=== PATIENT | male | born 1940 | race Caucasian/White ===

== ENCOUNTER → 2017-05-01 | Outpatient (CLI) | payer MEDICARE, BC ==
[~2017-05-01] MED LIST: APIX5TAB PO; ASPI81CH CHEW; ASPI81TA82 PO; ATEN1TAB73 PO; ATEN25TA PO; ATOR40TA PO; ATOR40TA16 PO; DULC100C PO; FISH1000 PO; GLIP5TAB8 PO; HYDR-3516 PO; ISOS30TA3 PO; LISI-360 PO; LISI10TA3 PO; MAGN200T PO; METH750T2 PO; NITR.4 SL; NITR1SUB3 SL; NORC5TAB PO; TAMS0.4C67 PO; ULTR50TA PO
[2017-05-01 10:15] LABS: AUTOMATED NEUTROPHIL # 3.5 TH/MM3 (1.8-7.7); BASOPHIL # 0.1 TH/MM3 (0-0.2); BASOPHIL % 1.2 % (0.0-2.0); EOSINOPHIL # 0.2 TH/MM3 (0-0.4); EOSINOPHIL % 3.8 % (0.0-4.0); HEMATOCRIT 41.4 % (39.0-51.0); HEMO FLAGS DIFF FINAL; LYMPH % 31.1 % (9.0-44.0); MEAN CELL VOLUME 91.8 FL (80.0-100.0); MEAN CORPUSCULAR HEMOGLOBIN 30.9 PG (27.0-34.0); MEAN CORPUSCULAR HGB CONC 33.7 % (32.0-36.0); MONO % 8.5 % (0.0-8.0); NEUT % 55.4 % (16.0-70.0); PLATELET COUNT 152 TH/MM3 (150-450); RED BLOOD COUNT 4.51 MIL/MM3 (4.50-5.90); WHITE BLOOD COUNT 6.3 TH/MM3 (4.0-11.0)
[2017-05-01 10:48] LABS: BICARBONATE 26.4 MEQ/L (21.0-32.0); POTASSIUM 4.4 MEQ/L (3.5-5.1)
[2017-05-01 11:04] LABS: BLOOD, URINE NEG (NEG); COMMENT (UR) CULT NOT INDICATED; CULTURE IF INDICATED CULT NOT INDICATED; GLUCOSE,URINE NEG (NEG); KETONE, URINE NEG (NEG); NITRITE,URINE NEG (NEG); URINE COLOR YELLOW (YELLW/STRAW)
--- NOTE | 2017-05-01 12:55 | RADRPT ---
EXAM DATE/TIME: 05/01/2017 11:18 [facility] COMPARISON: CHEST PA & LAT, September 04, 2015, 11:41. INDICATIONS : Evaluate for pneumonia, pneumothorax or communicable disease. Pre-op for shoulder surgery on 05/14/17 . MEDICAL HISTORY : Hyperparathyroidism. Diabetes mellitus type II. SURGICAL HISTORY : Coronary artery stent. ENCOUNTER: Initial ACUITY: 1 day PAIN SCORE: 0/10 LOCATION: Bilateral chest FINDINGS: The heart is stable. The pulmonary vascular pattern is normal. The lungs are clear. Degenerative c hanges are noted throughout the thoracic spine. Significant arthritic changes are noted involving th e shoulders bilaterally. There is also chronic bilateral rotator cuff pathology. CONCLUSION: 1. No acute cardiopulmonary disease. 2. Marked degenerative changes and chronic rotator cuff pathology involving the shoulders bilaterall y. 3. Degenerative changes throughout the thoracic spine. Carlos Coles MD on May 01, 2017 at 12:40 Board Certified Radiologist. This report was verified electronically.
--- NOTE | 2017-05-02 11:59 | EKG ---
Date Performed: 05/01/2017 Time Performed: 10:44:22 PTAGE: 76 years EKG: SINUS BRADYCARDIA BORDERLINE ECG NO PREVIOUS TRACING DOCTOR: Brooks Amezcua Interpretating Date/Time 05/02/2017 11:58:09
== END ==
LOC: CPRE 09:46
PROVIDERS: ATTEND Orthopaedic Surgery
DX: Z01.810 Encounter for preprocedural cardiovascular examination (principal); Z01.811 Encounter for preprocedural respiratory examination; Z01.812 Encounter for preprocedural laboratory examination; Z79.01 Long term (current) use of anticoagulants; M19.011 Primary osteoarthritis, right shoulder; R94.31 Abnormal electrocardiogram [ECG] [EKG]
CPT/HCPCS: 36415; 71020; 80048; 81001; 85025; 85610; 93005

== ENCOUNTER 2017-05-14 05:19 | Inpatient (IN) | payer MEDICARE, BC ==
--- NOTE | 2017-05-12 11:52 | MH ---
cc: ALEXANDERKARLA DATE OF ADMISSION: 05/14/2017 ADMITTING DIAGNOSIS 1. End-stage osteoarthritis of the right glenohumeral joint. 2. Complete rotator cuff tear, right shoulder. 3. Pain, right shoulder. HISTORY OF PRESENT ILLNESS The patient is a 76-year-old white male who has experienced pain of his right shoulder of at least six years duration. He had noted the gradual onset of discomfort unrelated to injury. 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 Within the past several years he did undergo orthopedic evaluation and apparently was diagnosed as having an arthritic condition of his right shoulder and his left knee for which recommendation was made to proceed with operative intervention. He did subsequently undergo a left total knee arthroplasty and experienced difficulty with regards to his rehabilitation thereafter for which he was taking tramadol for pain management. During this interval of time he continued to have ongoing pain about his right shoulder for which he subsequently was seen by the undersigned physician in April of 2016. At that time x-ray studies revealed severe degenerative changes of the glenohumeral joint with hypertrophic bony reaction and subtotal obliteration of the joint space with elevation of the humeral head in relationship to the glenoid and pronounced compromise of the subacromial space. There was atrophy of the acromion as well. Findings and treatment options were reviewed with the patient at this time. The pros and cons of continuing with conservative management versus operative intervention that would involve a reverse shoulder arthroplasty were outlined in detail. Emphasis was made regarding the fact that the decision to proceed with surgery would be left entirely to the patient's discretion. The patient was not quite ready to commit to any additional treatment at that time and thus elected to continue with conservative management. He was followed on an outpatient basis thereafter during which time he remained symptomatic with pain about the shoulder area. He subsequently underwent a CT scan evaluation, the results of which identified end-stage glenohumeral joint arthrosis with what appeared to be a chronic massive rotator cuff tear associated with diffuse fatty atrophy of the supraspinatus, subscapularis and infraspinatus muscles. There was severe acromioclavicular joint arthrosis. The patient continued to have pain about the shoulder area and again the treatment options were reviewed. The patient was not quite ready to commit to operative treatment once again, and thus elected to continue with conservative modalities. He was taking tramadol for pain management. He returned to the office more recently indicating that he was obviously incapacitated with regards to all activities of daily living having undergone a course of physical therapy and was trying to conform to continue exercise activities under his own supervision. Unfortunately, he was having considerable difficulty in this regard and felt that he had arrived at a point in time where he was ready to proceed with treatment as previously discussed. In compliance with his wishes he has currently been scheduled for admission in order that right reverse shoulder arthroplasty be accomplished. PAST MEDICAL HISTORY His past medical history, hospitalizations and surgeries have included: 1. Left total knee arthroplasty. 2. Tonsillectomy. 3. Colonoscopy. 4. Cardiac catheterization. 5. Medical management for diverticulitis. 6. Cardiac evaluation for atrial fibrillation. The patient's medical illnesses include: 1. Atrial fibrillation. 2. Diabetes. MEDICATIONS His current medications: 1. Aspirin 81 mg tablet daily. 2. Atenolol 25 mg twice daily. 3. Atorvastatin 40 mg daily. 4. Eliquis 5 mg twice daily. 5. Glipizide 5 mg twice daily. 6. Isosorbide 30 mg daily. 7. Lisinopril 10 mg twice daily. 8. Nitroglycerin 0.4 mg p.r.n. 9. Magnesium, one tablet daily. 10. Fish oil 1200 mg twice daily. 11. Stool softener 100 mg daily. ALLERGIES The patient denies any known drug allergies. REVIEW OF SYSTEMS He does wear glasses. Denies headache, seizure or syncope. No sinus congestion or epistaxis. Diminished auditory acuity. No tinnitus. No bleeding gums or dysphagia. He has dental implants. Denies cough, shortness of breath, upper respiratory infection, pneumonia or tuberculosis. No angina. He is medically managed for atrial fibrillation. He is status post cardiac catheterization. Appetite is good. Bowel movements are regular. No hepatitis, gallbladder disease, ulcers or hemorrhoids. No urinary tract infection. No kidney stones. No prostate disease. No history of fractures. No psychiatric illness. His remaining review of systems is unremarkable and noncontributory. FAMILY HISTORY He has been for six years, this being a second marriage. His is 64 years of age and described as being in good health. He has two sons and two daughters by a previous marriage, both indicated to be in good health. Family history is otherwise positive for diabetes and heart disease. SOCIAL HISTORY The patient completed a high school education. 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 He admits to at least 50 years of use of tobacco alternating between cigars and cigarettes, ethanol consumption on rare occasion. PHYSICAL EXAMINATION Height 5 feet 9 inches, weight 230 pounds. GENERAL: An alert, oriented and responsive 76-year-old white male who sits quietly upon the examination table with mild distress as related to pain involving his right shoulder. HEAD, EYES, EARS, NOSE, AND THROAT: Pupils are equally round and reactive to light. Trace corneal arcus. Extraocular movements full. External nares clear. External auditory canals clear. Semi-edentulous with dental implants in place. Mucous membranes pink and moist. Pharynx clear. NECK: Supple. Active range of motion with no significant pain. Carotid pulse palpable bilaterally. Trachea midline. Thyroid without enlargement. LUNGS: Clear to auscultation and percussion. BACK: No CVA tenderness. No discomfort throughout the dorsolumbar spine. HEART: Regular irregular rhythm without murmur or gallop. ABDOMEN: Soft, nontender. Bowel sounds are present. RECTAL: Per primary care physician. EXTREMITIES: Right Shoulder: There is mild tenderness generalized about the anterior and superior aspect of the shoulder joint. Restricted mobility of the shoulder in all ranges assessed with pain at the extremes of motion. Forward flexion 45 degrees, extension 30 degrees. Internal rotation to the lateral waist level. External rotation 15-20 degrees. Patient unable to position right hand onto left shoulder. With passive manipulation pain is elicited in the 45-60 degree range of abduction maneuvering with crepitation elicited. Drop arm test positive. Mild weakness of internal and external rotation. Networking Technician strength intact. Sensory intact. NEUROLOGIC: Cranial nerves II-XII grossly intact. IMPRESSION 1. End-stage osteoarthritis, right glenohumeral joint. 2. Complete rotator cuff tear, right shoulder. 3. Pain, right shoulder. PLAN Right reverse shoulder arthroplasty. The nature of the planned surgical procedure, the potential complications and risks associated, the expectations of surgery and the consent form were thoroughly reviewed with the patient in the presence of his prior to admission to the hospital. Wai has indicated his full understanding regarding all of the above and given consent to proceed with treatment as outlined. Medical evaluation and clearance for surgery will be completed by his primary care physician, Dr. Anguiano. Karla Sandra MD NBS/BT /11:21 AM /11:34 AM
[~2017-05-14] VITALS: Ht 175.3 cm; Wt 104.0 kg
[~2017-05-14 05:19] MED LIST changes: -ASPI81TA82 PO; -ATEN1TAB73 PO; -ATOR40TA PO; -DULC100C PO; -HYDR-3516 PO; -LISI-360 PO; -MAGN200T PO; -METH750T2 PO; -NITR.4 SL; -NORC5TAB PO; -TAMS0.4C67 PO; -ULTR50TA PO
[2017-05-14] MEDS ORDERED: ceFAZolin 2 GM PREMIX 50 ML IV SCH (05:45)
[2017-05-14] MEDS ORDERED: INSULIN HUMAN REGULAR 1,000 UNITS/10 ML VIAL SQ PRN (05:45)
[2017-05-14] MEDS ORDERED: METOPROLOL TARTRATE 25 MG TAB PO PRN (05:45)
[2017-05-14] MEDS ORDERED: POVIDONE IODINE 7.5% SCRUB 118 ML BOTTLE TOPICAL SCH (05:45)
[2017-05-14] MEDS ORDERED: SODIUM CHLORID 0.9% 500 ML IV PRN (05:45)
[2017-05-14] MEDS ORDERED: CHLORHEXIDINE GLUCONATE 2 % 1 PACK (2 CLOTHS) TOPICAL PRN (05:45)
[2017-05-14] MEDS ORDERED: POVIDONE IODINE 5% (ANTISEPSIS KIT) 4 APPLICATIONS EACH NARE PRN (05:45)
[2017-05-14] MEDS ORDERED: LACTATED RINGER'S 1000 ML IV PRN (05:45)
[2017-05-14] MEDS ORDERED: ceFAZolin INJ 1,000 MG VIAL ONE (06:04)
[2017-05-14] MEDS ORDERED: GLIP5TAB8 PO (06:11)
[2017-05-14] MEDS ORDERED: MIDAZOLAM HCL 2 MG/2 ML VIAL ONE (06:44)
[2017-05-14] MEDS ORDERED: ACETAMINOPHEN 1000 MG/100 ML 100 ML IV ONE (06:44)
[2017-05-14] MEDS ORDERED: FAMOTIDINE 20 MG/2 ML VIAL ONE (06:45)
[2017-05-14] MEDS ORDERED: TRANEXAMIC ACID 1 GM PRIOR TO PROCEDURE IV SCH ×2 (07:00)
[2017-05-14] MEDS ORDERED: TRANEXAMIC ACID 1 GM POST-OP IV SCH ×2 (10:00)
[2017-05-14] MEDS ORDERED: ceFAZolin INJ 1,000 MG VIAL IV ONE ×2 (10:20→12:00)
[2017-05-14] MEDS ORDERED: DO NOT ADM ANY ANTICOAGULANT DRUGS PRN (10:54)
[2017-05-14] MEDS ORDERED: Post-op Orders (for Pharmacy) MISC XX ONE (11:00)
[2017-05-14] MEDS ORDERED: ONDANSETRON HCL 4 MG/2 ML VIAL IVP PRN (11:00)
[2017-05-14] MEDS ORDERED: SODIUM CHLORIDE 0.9% FLUSH 5 ML FLUSH IVF PRN (11:00)
[2017-05-14] MEDS ORDERED: TRANEXAMIC ACID INJ 1,000 MG in SODIUM CHLORIDE 0.9% INJ 100 ML IV SCH (11:00)
[2017-05-14] MEDS ORDERED: BISACODYL 10 MG SUPP RECTAL PRN (11:00)
[2017-05-14] MEDS ORDERED: ZOLPIDEM TARTRATE 5 MG TAB PO PRN (11:00)
[2017-05-14] MEDS ORDERED: ACETAMINOPHEN/HYDROcodone 325 MG/5 MG TAB PO PRN (11:00)
[2017-05-14] MEDS ORDERED: MISCELLANEOUS PHARMACY INFORMATION XX ONE (11:00)
[2017-05-14] MEDS ORDERED: ACETAMINOPHEN 325 MG TAB PO PRN (11:00)
[2017-05-14] MEDS ORDERED: NALOXONE HCL 0.4 MG/ML AMP IV PRN (11:00)
[2017-05-14] MEDS ORDERED: DEXT 5%-NACL 0.45% 1000 ML INJ 1,000 ML ONE (11:27)
[2017-05-14] MEDS: DEXT 5%-NACL 0.45% 1000 ML INJ 1,000 ML IV SCH ×2 (11:30→21:01)
--- NOTE | 2017-05-14 11:38 | RADRPT ---
EXAM DATE/TIME: 05/14/2017 11:13 [facility] COMPARISON: CHEST PA & LAT, May 01, 2017, 11:18. INDICATIONS : Post-op right shoulder replacement. MEDICAL HISTORY : Hyperparathyroidism. Diabetes mellitus type II. SURGICAL HISTORY : Coronary artery stent. ENCOUNTER: Initial ACUITY: 1 day PAIN SCORE: Non-responsive. LOCATION: Right shoulder. FINDINGS: The patient is post right shoulder arthroplasty. Orthopedic hardware appears in excellent position. T he visualized portion of lung apex is clear. There degenerative changes in the right a.c. joint. CONCLUSION: 1. Uncomplicated right shoulder arthroplasty. Addi Ventura MD on May 14, 2017 at 11:33 Board Certified Radiologist. This report was verified electronically.
[2017-05-14] MEDS ORDERED: BUPIVACAINE HCL PF 0.5% 30 ML VIAL NERV BLOCK ONE (11:39)
[2017-05-14] MEDS: MORPHINE SULFATE 30 MG/30 ML PCA IV SCH (11:40)
[2017-05-14] MEDS ORDERED: *ENALAPRILAT 1.25 MG/ML VIAL PERIprocedural Use ONLY ONE ×2 (11:41→12:15)
[2017-05-14] MEDS ORDERED: LIDOCAINE HCL 1% PF 5 ML AMPULE OTHER ONE (12:00)
[2017-05-14] MEDS ORDERED: GLYCOPYRROLATE 1 MG/5 ML SYRINGE IV PUSH ONE (12:00)
[2017-05-14] MEDS ORDERED: ONDANSETRON HCL 4 MG/2 ML VIAL IV PUSH ONE (12:00)
[2017-05-14] MEDS ORDERED: PROPOFOL 200 MG/20 ML AMP IV ONE (12:00)
[2017-05-14] MEDS ORDERED: NEOSTIGMINE 3 MG/3 ML SYR IV ONE (12:00)
[2017-05-14] MEDS ORDERED: ePHEDrine/NS 25 MG/5 ML SYR IV ONE (12:00)
[2017-05-14] MEDS ORDERED: ROCURONIUM INJ 50 MG/5 ML SYRINGE IV PUSH ONE (12:00)
--- NOTE | 2017-05-14 13:27 | MP ---
cc: KARLA SANDRA DATE OF SURGERY 05/14/2017 PREOPERATIVE DIAGNOSIS End-stage osteoarthritis of the right glenohumeral joint, complete rotator cuff tear right shoulder, pain right shoulder. POSTOPERATIVE DIAGNOSIS End-stage osteoarthritis of the right glenohumeral joint, complete rotator cuff tear right shoulder, pain right shoulder. PROCEDURE Right reverse shoulder arthroplasty. SURGEON Karla Sandra MD ANESTHESIA General endotracheal INDICATIONS A 76-year-old white male with pain of the right shoulder of at least six years duration who had noted the gradual onset of discomfort unrelated to any current injury. 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 Within the past several years, he did undergo orthopedic evaluation and at that time was apparently diagnosed as having an arthritic condition of his right shoulder as well as his left knee for which recommendation was made for operative intervention. He did subsequently undergo a left total knee arthroplasty experiencing difficulty with regards to his rehabilitation for which he was taking tramadol for pain management. During this interval of time, he continued to have ongoing pain about his right shoulder for which he was later seen by the undersigned physician in April of this past year. At that time, his x-ray studies revealed severe degenerative changes of the glenohumeral joint with hypertrophic bony reaction and subtotal obliteration of the joint space with elevation of the humeral head in relationship to the glenoid and pronounced compromise of the subacromial space. There was atrophy of the acromion as well. Findings and treatment options were reviewed with the patient at that time. The pros and cons of continuing with conservative management versus operative intervention that would involve a reverse shoulder arthroplasty were outlined in detail. Emphasis was made regarding the fact that the decision to proceed with surgery would be left entirely to the patient's discretion. At that time, the patient was not quite ready to commit to any form of operative treatment and elected to continue with conservative management. He was followed on an outpatient basis during which time he remained symptomatic with pain about the shoulder area. He later underwent a CT scan evaluation the results of which identified end stage glenohumeral joint arthrosis with what appeared to be a chronic massive rotator cuff tear associated with diffuse fatty atrophy of the supraspinatus, subscapularis and infraspinatus muscles. There was severe acromioclavicular joint arthrosis. The patient continued to have pain about the shoulder area and again treatment options were reviewed. The patient considered his options while continuing with conservative management and taking tramadol for pain management. He returned to the office more recently indicating that he was obviously incapacitated with regards to all activities of daily living having undergone a previous course of physical therapy while trying to conform to exercise activities under his own supervision. Unfortunately, he was having considerable difficulty in this regard and felt that he had arrived at a point in time where he was ready to proceed with treatment as previously discussed. In compliance with his wishes, he was scheduled for admission at this time in order that reverse shoulder arthroplasty be accomplished. FORMAT Following induction of satisfactory general anesthesia by endotracheal intubation as completed per the Department of Anesthesia, the patient was positioned upon the operating table in a modified beach-chair configuration. The right shoulder and upper extremity proper were isolated with a U-drape thereafter being prepped with Betadine solution and draped into a sterile field in the routine manner. Prior to initiation of the actual procedure, the standard time-out protocol was completed. All parameters were appropriately addressed and confirmed by operating personnel. A standard anterior approach to the shoulder was initiated through a sharp skin incision overlying the deltopectoral interval extending from the inferior margin of the clavicle to the axillary crease. The incision was developed through underlying subcutaneous tissue with hemostasis maintained by electrocautery. By deepening dissection, the deltopectoral interval was identified and the cephalic vein exposed distally and thereafter in a distal to proximal orientation, the deltopectoral interval was developed with the cephalic vein being retracted laterally with the deltoid musculature. Considerable adhesions were encountered throughout the subacromial bursa that required extensive debridement. There was also a very prominent segment of hypertrophic bone along the lateral margin of the acromion which was sharply excised. With the shoulder maintained in a slightly externally rotated orientation, a limited release of the pectoralis insertion was accomplished. The circumflex humeral vessels were clamped and coagulated. There was no evidence of a biceps tendon. The subscapularis tendon was markedly attenuated as it was divided along the anatomic neck of the humeral head and tagged medially with #1 Tycron suture. Additional hypertrophic bone was encountered within the confines of the joint space which was excised as it was exposed and the humeral head was gradually delivered into the wound exposing the humeral head in its entirety. Severe degenerative changes with associated deformity of the humeral head was readily apparent. An entry point was placed superiorly about the humeral head adjacent to the bicipital groove and entering into the humeral canal. Sequential rasping was thereafter accomplished from 7-13 mm. With the 13-mm rasp in place, the external guide was positioned in approximately 30 degrees of retroversion and secured into place and thereafter the humeral head was resected. Broaching was thereafter accomplished from 7 through 13 mm with a calcar gisella being utilized at the 13 mm stage. Additional debridement of the hypertrophic bone along the greater tuberosity was accomplished. It should be noted that there was no evidence of residual rotator cuff involving both supraspinatus and infraspinatus tendons. With the 13 mm trial humeral broach in place, a covering cap was placed and attention was redirected to the glenoid. Retractors were placed superiorly, anteriorly and posteriorly inferiorly where after the glenoid labrum was excised as was remnants of the superior and middle inferior glenohumeral ligaments. Obvious contracture was noted about the joint space which was freed as it was encountered. The axillary nerve was identified by palpation. With the glenoid adequately exposed in a 360 degrees orientation, hash flaherty were placed from 12-6 o'clock position and the 9-3 o'clock position allowing orientation of the central portion of the glenoid. A guide pin was thereafter placed at this entry point and utilizing the glenoid 10 degrees inferior tilt guide, the guide pin was positioned. Thereafter, the step-down central peg hole reamer was passed creating a central opening. Limited debridement along the inferior margin of the glenoid was accomplished and thereafter a 25 mm glenosphere mini baseplate was firmly seated. Drill holes were placed centrally facilitating positioning of a 35 mm central screw and two 25 mm locking screws were placed superiorly, inferiorly a 15 mm screw anteriorly. With the baseplate firmly secured into place, a 36 mm glenosphere with maximum inferior offset was secured onto the baseplate. Attention was redirected to the proximal humerus with the 13 mm trial humeral broach in place. Trial reductions were completed utilizing a 44 mm humeral tray with both 36-mm humeral bearings at both standard and +3 sizing trialed. The +3 sizing was determined to be the more favorable fit with some obvious tightness and limitations of external rotation beyond 30 degrees. The remaining mobility of the shoulder joint demonstrated stability throughout. An open dislocation was completed. The trial humeral components were removed. The wound was copiously irrigated with pulsating antibiotic solution and thereafter a 13 mm mini humeral stem was firmly seated to which a 44-mm humeral tray with 44 x 36 mm +3 humeral bearing insert attached. Open reduction completed and repeat range of motion again noted stability as previously described. Final irrigation was accomplished with hemostasis maintained. The subscapularis tendon was repaired with previously inserted #1 Tycron sutures. The deltopectoral interval was reapproximated with a running 0 Vicryl suture. The remaining portion of the wound was closed in layers in the routine manner with skin margins being reapproximated with a running subcuticular 3-0 Vicryl suture over which Steri-Strips were applied. Xeroform gauze and a bulky dry sterile dressing were placed. The extremity was supported in an arm sling anesthesia was discontinued. The patient thus transferred to a hospital bed and returned to recovery room in satisfactory condition having tolerated his operative procedure well. Estimated blood loss was approximately 100 cc. All implants were of the [employer] chimney construction supervisor. MD DEBBIE Gray/ARTHUR /10:40 AM /1:11 PM
--- NOTE | 2017-05-14 13:55 | PD.CONS ---
HPI Service [facility] Consult Requested By Primary Care Physician Felipe Anguiano MD Diagnoses: History of Present Illness Mr. Evans is a 76-year-old male. He is here for right total shoulder. I'm seeing him postop. He is doing well postop without complaints of pain, nausea, or dizziness. Nursing reports he did have some bradycardia during surgery. At baseline he is on atenolol. Past medical history of coronary artery disease does not complain of any chest pain at this time and has not had chest pain recently. No new complaints when seen today. Review of Systems Constitutional: DENIES: Fever, Chills, Change in appetite Endocrine: DENIES: Heat/cold intolerance Eyes: DENIES: Blurred vision, Diplopia, Eye inflammation, Eye pain Ears, nose, mouth, throat: DENIES: Tinnitus, Hearing loss, Vertigo Respiratory: DENIES: Cough, Wheezing, Sputum production, Shortness of breath Cardiovascular: DENIES: Chest pain, Palpitations, Syncope Gastrointestinal: DENIES: Abdominal pain, Black stools, Bloody stools Musculoskeletal: COMPLAINS OF: Joint pain, DENIES: Muscle aches, Stiffness Integumentary: DENIES: Abnormal pigmentation, Nail changes Hematologic/lymphatic: DENIES: Bruising, Lymphadenopathy Immunologic/allergic: DENIES: Eczema, Urticaria Neurologic: DENIES: Abnormal gait, Headache, Localized weakness Psychiatric: DENIES: Anxiety, Confusion, Hallucinations Past Family Social History Allergies: Coded Allergies: No Known Allergies (Verified , 05/14/17) Past Medical History Osteoarthritis Hypertension Hyperlipidemia Coronary artery disease Past Surgical History History of coronary artery stent 12 years ago Reported Medications Reported Meds & Active Scripts Active Reported Glipizide 5 Mg Tab 5 Mg PO DAILY Take 30 minutes before a meal Fish Oil ([place]-3 Fatty Acids) 340 Mg-1,000 Mg Cap 1,200 Mg PO BID Nitroglycerin SL (Nitroglycerin) 0.4 Mg Subl 0.4 Mg SL DIRECTED PRN ONE TABLET UNDER THE TONGUE NEEDED FOR CHEST PAIN, MAY REPEAT EVERY FIVE MINUTES FOR A TOTAL OF 3 DOSES OR CALL 911 IF NO RELIEF Lisinopril 10 Mg Tab 10 Mg PO BID Isosorbide Mononitrate ER (Isosorbide Mononitrate) 30 Mg Randy 30 Mg PO DAILY Atorvastatin (Atorvastatin Calcium) 40 Mg Tab 40 Mg PO HS Atenolol 25 Mg Tab 25 Mg PO DAILY Aspirin 81 Mg Chew 81 Mg CHEW DAILY Eliquis (Apixaban) 5 Mg Tab 5 Mg PO BID Active Ordered Medications Administered Medications Medications (Trade) Dose Ordered Sig/Leticia Route PRN Reason Start Time Stop Time Status Last Admin Dose Admin Lactated Ringer's 1,000 ml @ 30 mls/hr Q24H PRN IV SEE LABEL COMMENTS 05/14/17 05:45 05/17/17 05:44 05/14/17 06:15 Povidone Iodine (Betadine 5% Antisepsis Kit) 1 applic [employer] PRN EACH NARE SEE LABEL COMMENTS 05/14/17 05:45 05/17/17 05:44 05/14/17 06:15 Chlorhexidine Gluconate (Chlorhexidine 2% Cloth) 3 pack [employer] PRN TOPICAL SEE LABEL COMMENTS 05/14/17 05:45 05/17/17 05:44 05/14/17 05:20 Cefazolin Sodium/ Dextrose 50 ml @ 100 mls/hr [employer] IV 05/14/17 05:45 05/17/17 05:44 05/14/17 06:25 Dextrose/Sodium Chloride 1,000 ml @ 125 mls/hr Q8H IV 05/14/17 11:00 05/14/17 11:30 Morphine Sulfate (Morphine 1 Mg/ ml [employer]) 30 mg UNSCH IV 05/14/17 11:00 05/14/17 11:40 Family History No medical history in father Mother had diabetes mellitus type 2 Social History No alcohol abuse No illicit drug abuse Occasional cigar use Physical Exam Vital Signs Vital Signs Date Time Temp Pulse Resp B/P (MAP) Pulse Ox O2 Delivery O2 Flow Rate FiO2 05/14/17 12:30 97.6 55 16 169/70 (103) 95 Nasal Cannula 2 05/14/17 12:15 54 15 180/72 (108) 95 Nasal Cannula 2 05/14/17 12:00 52 15 176/77 (110) 94 Nasal Cannula 2 05/14/17 11:45 15 05/14/17 11:45 53 15 178/73 (108) 94 Nasal Cannula 2 05/14/17 11:40 51 15 190/75 (113) 100 Nasal Cannula 3 05/14/17 11:40 15 05/14/17 11:30 50 15 181/72 (108) 99 Nasal Cannula 3 05/14/17 11:15 51 15 162/70 (100) 98 Nasal Cannula 3 05/14/17 11:00 52 15 147/63 (91) 97 Nasal Cannula 3 05/14/17 10:50 97.4 59 18 134/61 (85) 100 Nasal Cannula 4 05/14/17 06:00 98.0 47 20 116/58 (77) 96 Physical Exam GENERAL: NAD, A&Ox3 HEAD: Normocephalic. NECK: Supple, trachea midline. No lymphadenopathy. EYES: No scleral icterus. No injection or drainage. CARDIOVASCULAR: Regular rate and rhythm without murmurs, gallops, or rubs. RESPIRATORY: Breath sounds equal bilaterally. No accessory muscle use. GASTROINTESTINAL: Abdomen soft, non-tender, nondistended. MUSCULOSKELETAL: No cyanosis, or edema. Right shoulder bandaged SKIN: Warm and dry. NEURO: No focal neurological deficitis. Assessment and Plan Problem List: (1) Hypertension ICD Code: I10 - Essential (primary) hypertension Status: Chronic (2) Hyperlipidemia ICD Code: E78.5 - Hyperlipidemia, unspecified Status: Chronic (3) CAD (coronary artery disease) ICD Code: I25.10 - Atherosclerotic heart disease of [place] coronary artery without angina pectoris Status: Chronic Assessment and Plan Assessment and plan 76-year-old male admitted secondary to total right shoulder surgery Status post total right shoulder surgery Osteoarthritis Follow hemoglobin Orthopedics following Continue as needed pain treatments Physical therapy Hypertension Follow blood pressures Continue baseline treatment, atenolol and lisinopril Hyperlipidemia Continue baseline treatment, statin Follow as an outpatient History of A. fib Coronary artery disease Follow on telemetry overnight Resume Imdur and nitroglycerin PRN Resume Eliquis in a.m. DM2 Follow blood sugars Insulin Sliding Scale Diabetic Diet DVT prophylaxis Eliquis to resume in a.m. Addi Heredia MD May 14, 2017 13:55
[2017-05-14] MEDS ORDERED: NITROGLYCERIN 0.4 MG SL 25 TABS/BTL SL PRN (14:00)
[2017-05-14] MEDS ORDERED: DEXTROSE 50% IN WATER 50 ML VIAL(D50) IV PUSH PRN (14:30)
[2017-05-14] MEDS ORDERED: GLUCAGON 1 MG/ML VIAL OTHER PRN (14:30)
[2017-05-14 15:00] VITALS: BP 111/58; PULSE 63; RESP 16; TEMP 97.8; O2SAT 98
[2017-05-14] MEDS: PCA - TOTAL MG MORPHINE DELIVERED PER SHIFT SCH ×2 (16:00→22:00)
[2017-05-14] MEDS: INSULIN ASPART SUPPLEMENTAL SCALE SQ SCH ×2 (17:34→21:00)
[2017-05-14 19:00] VITALS: BP 117/54; PULSE 67; RESP 16; TEMP 98.8; O2SAT 96
[2017-05-14 20:35] VITALS: O2SAT 98
[2017-05-14] MEDS: SODIUM CHLORIDE 0.9% FLUSH 5 ML FLUSH IVF SCH (21:00)
[2017-05-14] MEDS: APIXABAN 5 MG TABLET PO SCH (21:00)
[2017-05-14] MEDS: ATORVASTATIN 40 MG TAB PO SCH (21:00)
[2017-05-14 23:00] VITALS: PULSE 79
[2017-05-15] VITALS (9 sets, daily range): BP systolic 102–149; BP diastolic 61–84; PULSE 66–109; RESP 16–18; TEMP 96.8–100.3; O2SAT 95–98
[2017-05-15] MEDS: ACETAMINOPHEN/HYDROcodone 325 MG/5 MG TAB PO PRN ×5 (03:36→20:20)
[2017-05-15] MEDS: DEXT 5%-NACL 0.45% 1000 ML INJ 1,000 ML IV SCH ×3 (03:45→19:00)
[2017-05-15] MEDS: PCA - TOTAL MG MORPHINE DELIVERED PER SHIFT SCH ×3 (05:36→22:00)
[2017-05-15] MEDS: MORPHINE SULFATE 30 MG/30 ML PCA IV SCH (06:05)
[2017-05-15] MEDS ORDERED: HYDR-3516 PO (06:33)
--- NOTE | 2017-05-15 06:36 | HHI.FF ---
Face to Face Verification Diagnosis: (1) DJD of right shoulder Occupational Therapy Right UE Weight Bearing: WB as tolerated Right UE Range of Motion: Active ROM Additional Instructions Limit External Rotation to < 30 degrees for initial six weeks post-op Nursing Dressing Changes: Daily dressing change I have seen patient Wai Eavns on 05/15/17. My clinical findings support the need for the requested home health care services because: Limited ability to care for self High risk of falls I certify that my clinical findings support that this patient is homebound because: Post-op weakness Unsteady gait/balance Unsafe to leave home unassisted Arun Sandra MD May 15, 2017 06:36
[2017-05-15 07:07] LABS: BASOPHIL % 0.5 % (0.0-2.0); EOSINOPHIL # 0.1 TH/MM3 (0-0.4); EOSINOPHIL % 0.9 % (0.0-4.0); HEMATOCRIT 36.3 % (39.0-51.0); HEMO FLAGS DIFF FINAL; LYMPH % 16.4 % (9.0-44.0); LYMPHOCYTE # 1.4 TH/MM3 (1.0-4.8); MEAN CELL VOLUME 92.3 FL (80.0-100.0); MEAN CORPUSCULAR HEMOGLOBIN 31.1 PG (27.0-34.0); MEAN CORPUSCULAR HGB CONC 33.7 % (32.0-36.0); MONO % 9.6 % (0.0-8.0); NEUT % 72.6 % (16.0-70.0); PLATELET COUNT 122 TH/MM3 (150-450); RED BLOOD COUNT 3.93 MIL/MM3 (4.50-5.90); RED CELL DISTRIBUTION WIDTH 13.6 % (11.6-17.2); WHITE BLOOD COUNT 8.3 TH/MM3 (4.0-11.0)
[2017-05-15 07:26] LABS: ALT (GPT) 19 U/L (12-78); ANION GAP 6 MEQ/L (5-15); AST (GOT) 25 U/L (15-37); BICARBONATE 26.2 MEQ/L (21.0-32.0); BLOOD UREA NITROGEN 13 MG/DL (7-18); CHLORIDE 105 MEQ/L (98-107); GLOMERULAR FILTRATION RATE 81 ML/MIN (>89); SODIUM (NA) 137 MEQ/L (136-145)
[2017-05-15 07:27] LABS: ALKALINE PHOSPHATASE 29 U/L (45-117); TOTAL BILIRUBIN ADULT 0.7 MG/DL (0.2-1.0)
[2017-05-15] MEDS: INSULIN ASPART SUPPLEMENTAL SCALE SQ SCH ×4 (08:00→21:28)
[2017-05-15] MEDS: SODIUM CHLORIDE 0.9% FLUSH 5 ML FLUSH IVF SCH ×2 (09:00→20:16)
[2017-05-15] MEDS ORDERED: APIXABAN 5 MG TABLET PO SCH (09:00)
[2017-05-15] MEDS: ATENOLOL 25 MG TAB PO SCH (09:13)
[2017-05-15] MEDS: APIXABAN 5 MG TABLET PO SCH ×2 (09:13→20:17)
[2017-05-15] MEDS: ISOSORBIDE MONONITRATE 30 MG TAB PO SCH (09:13)
[2017-05-15] MEDS: LISINOPRIL 10 MG TAB PO SCH ×2 (09:13→20:19)
[2017-05-15] MEDS ORDERED: ZOLPIDEM TARTRATE 5 MG TAB PO PRN (17:00)
--- NOTE | 2017-05-15 17:09 | HHI.PR ---
Subjective Remarks Transient episode of A. fib RVR overnight. Patient is normally in sinus rhythm , but has a past history of A. fib. Etiology likely related to surgery and postop changes. He spontaneously returned to sinus rhythm. He has remained in sinus rhythm since. Objective Vital Signs Date Time Temp Pulse Resp B/P (MAP) Pulse Ox O2 Delivery O2 Flow Rate FiO2 05/15/17 16:23 96 21 05/15/17 08:00 98.0 66 18 149/72 (97) 96 05/15/17 06:15 17 05/15/17 06:05 18 05/15/17 05:36 18 05/15/17 04:00 99.6 66 17 146/71 (96) 95 05/15/17 00:00 100.3 75 16 146/70 (95) 96 05/14/17 23:00 79 05/14/17 22:00 18 05/14/17 20:35 98 21 05/14/17 19:00 98.8 67 16 117/54 (75) 96 I/O 05/14/17 05/14/17 05/14/17 05/15/17 05/15/17 05/15/17 07:00 15:00 23:00 07:00 15:00 23:00 Intake Total 50 ml 1450 ml 1084 ml 1665 ml Output Total 100 ml 800 ml 750 ml Balance 50 ml 1350 ml 284 ml 915 ml Intake Oral 480 ml 480 ml IV Total 50 ml 250 ml 604 ml 1185 ml Other 1200 ml Output Urine Total 800 ml 750 ml Estimated Blood Loss 100 ml # Voids 0 # Bowel Movements 0 0 Result Diagram: 05/15/17 0603 05/15/17 0603 Objective Remarks GENERAL: NAD, A&Ox3 HEAD: Normocephalic. NECK: Supple, trachea midline. No lymphadenopathy. EYES: No scleral icterus. No injection or drainage. CARDIOVASCULAR: Regular rate and rhythm without murmurs, gallops, or rubs. RESPIRATORY: Breath sounds equal bilaterally. No accessory muscle use. GASTROINTESTINAL: Abdomen soft, non-tender, nondistended. MUSCULOSKELETAL: No cyanosis, or edema. SKIN: Warm and dry. NEURO: No focal neurological deficitis. A/P Problem List: (1) DJD of right shoulder ICD Code: M19.011 - Primary osteoarthritis, right shoulder (2) Hypertension ICD Code: I10 - Essential (primary) hypertension Status: Chronic (3) Hyperlipidemia ICD Code: E78.5 - Hyperlipidemia, unspecified Status: Chronic (4) GERD (gastroesophageal reflux disease) ICD Code: K21.9 - Gastro-esophageal reflux disease without esophagitis Status: Acute (5) CAD (coronary artery disease) ICD Code: I25.10 - Atherosclerotic heart disease of [place] coronary artery without angina pectoris Status: Chronic Assessment and Plan Assessment and plan 76-year-old male admitted secondary to total right shoulder surgery Status post total right shoulder surgery Osteoarthritis Follow hemoglobin Orthopedics following Continue as needed pain treatments Physical therapy Hypertension Follow blood pressures Continue baseline treatment, atenolol and lisinopril Hyperlipidemia Continue baseline treatment, statin Follow as an outpatient History of A. fib Transient atrial fibrillation (this hospital stay) Coronary artery disease Continue to Follow on telemetry Resume Imdur and nitroglycerin PRN Continue Eliquis No change to present treatment at this point If A. fib recurs will consider upgrading patient's treatment and consulting cardiology DM2 Follow blood sugars Insulin Sliding Scale Diabetic Diet DVT prophylaxis Eliquis Discharge planning Plan for discharge to home with outpatient physical therapy, tomorrow if no recurrence of A. fib overnight Addi Heredia MD May 15, 2017 17:09
[2017-05-15] MEDS ORDERED: MAGNESIUM HYDROXIDE SUSP 30 ML CUP PO PRN (17:15)
[2017-05-15] MEDS: DOCUSATE SODIUM 100 MG CAP PO SCH (20:17)
[2017-05-15] MEDS: ATORVASTATIN 40 MG TAB PO SCH (20:17)
[2017-05-16] VITALS: BP 118/69; PULSE 67; RESP 17; TEMP 98.3; O2SAT 96
[2017-05-16] MEDS: ACETAMINOPHEN/HYDROcodone 325 MG/5 MG TAB PO PRN ×3 (00:04→09:36)
[2017-05-16] MEDS: DEXT 5%-NACL 0.45% 1000 ML INJ 1,000 ML IV SCH (03:00)
[2017-05-16 04:00] VITALS: BP 137/69; PULSE 76; RESP 17; TEMP 97.9; O2SAT 95
[2017-05-16] MEDS: PCA - TOTAL MG MORPHINE DELIVERED PER SHIFT SCH (06:00)
[2017-05-16 08:00] VITALS: BP 118/56; PULSE 83; RESP 18; TEMP 98.9; O2SAT 92
[2017-05-16] MEDS: SODIUM CHLORIDE 0.9% FLUSH 5 ML FLUSH IVF SCH (09:00)
[2017-05-16 09:05] VITALS: O2SAT 95
[2017-05-16] MEDS: APIXABAN 5 MG TABLET PO SCH (09:33)
[2017-05-16] MEDS: DOCUSATE SODIUM 100 MG CAP PO SCH (09:33)
[2017-05-16] MEDS: ISOSORBIDE MONONITRATE 30 MG TAB PO SCH (09:33)
[2017-05-16] MEDS: ATENOLOL 25 MG TAB PO SCH (09:34)
[2017-05-16] MEDS: LISINOPRIL 10 MG TAB PO SCH (09:34)
[2017-05-16] MEDS: INSULIN ASPART SUPPLEMENTAL SCALE SQ SCH (09:43)
--- NOTE | 2017-05-16 13:36 | HHI.PR ---
Subjective Remarks No recurrence of A. fib or A. fib RVR. No need to change patient's baseline treatments. Patient is stable for discharge to home with outpatient PT. Objective Vital Signs Date Time Temp Pulse Resp B/P (MAP) Pulse Ox O2 Delivery O2 Flow Rate FiO2 05/16/17 09:05 95 21 05/16/17 08:00 98.9 83 18 118/56 (76) 92 05/16/17 04:00 97.9 76 17 137/69 (91) 95 05/16/17 00:00 98.3 67 17 118/69 (85) 96 05/15/17 23:00 66 05/15/17 20:30 89 05/15/17 19:00 99.3 99 18 102/61 (75) 95 05/15/17 16:23 96 21 05/15/17 16:00 96.8 92 18 119/84 (96) 98 I/O 05/15/17 05/15/17 05/15/17 05/16/17 05/16/17 05/16/17 07:00 15:00 23:00 07:00 15:00 23:00 Intake Total 1665 ml 600 ml 480 ml 480 ml Output Total 750 ml Balance 915 ml 600 ml 480 ml 480 ml Intake Oral 480 ml 600 ml 480 ml 480 ml IV Total 1185 ml Output Urine Total 750 ml # Voids 4 3 3 # Bowel Movements 0 0 1 0 Result Diagram: 05/15/17 0603 05/15/17 0603 Objective Remarks GENERAL: NAD, A&Ox3 HEAD: Normocephalic. NECK: Supple, trachea midline. No lymphadenopathy. EYES: No scleral icterus. No injection or drainage. CARDIOVASCULAR: Regular rate and rhythm without murmurs, gallops, or rubs. RESPIRATORY: Breath sounds equal bilaterally. No accessory muscle use. GASTROINTESTINAL: Abdomen soft, non-tender, nondistended. MUSCULOSKELETAL: No cyanosis, or edema. SKIN: Warm and dry. NEURO: No focal neurological deficitis. A/P Problem List: (1) DJD of right shoulder ICD Code: M19.011 - Primary osteoarthritis, right shoulder (2) Hypertension ICD Code: I10 - Essential (primary) hypertension Status: Chronic (3) Hyperlipidemia ICD Code: E78.5 - Hyperlipidemia, unspecified Status: Chronic (4) GERD (gastroesophageal reflux disease) ICD Code: K21.9 - Gastro-esophageal reflux disease without esophagitis Status: Acute (5) CAD (coronary artery disease) ICD Code: I25.10 - Atherosclerotic heart disease of [place] coronary artery without angina pectoris Status: Chronic Assessment and Plan Assessment and plan 76-year-old male admitted secondary to total right shoulder surgery. Medically clear for discharge to home today. Status post total right shoulder surgery Osteoarthritis Follow with orthopedics as an outpatient Hypertension Follow blood pressures Continue baseline treatment, atenolol and lisinopril Hyperlipidemia Continue baseline treatment, statin Follow as an outpatient History of A. fib Transient atrial fibrillation (this hospital stay) Coronary artery disease No recurrence of A. fib Continue Imdur and nitroglycerin PRN Continue Eliquis No change to present treatment at this point DM2 Slight elevations should taper through time Follow blood sugars Resume baseline by mouth treatments Diabetic Diet DVT prophylaxis Eliquis Discharge planning Medically clear for discharge home today Addi Heredia MD May 16, 2017 13:36
--- NOTE | 2017-05-16 14:37 | MD ---
cc: KARLA MUNOZ WAFIK F. M.D. ADMISSION DATE: 05/14/2017 DISCHARGE DATE: 05/16/2017 ADMITTING DIAGNOSIS 1. End-stage osteoarthritis of the right glenohumeral joint. 2. Complete rotator cuff tear, right shoulder. 3. Pain, right shoulder. DISCHARGE DIAGNOSIS 1. End-stage osteoarthritis of the right glenohumeral joint. 2. Complete rotator cuff tear, right shoulder. 3. Pain, right shoulder. HISTORY This is a 76-year-old white male with pain in the right shoulder of at least six years duration. He had noted the gradual onset of discomfort unrelated to injury. 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 During the past several years he had undergone orthopedic evaluation and was diagnosed as having arthritic condition involving both his right shoulder and his left knee for which recommendation was made to proceed with operative intervention. He did subsequently undergo a left total knee arthroplasty experiencing some degree of difficulty with regards to his rehabilitation thereafter for which he was taking tramadol for pain management. During this interval of time he continued to note ongoing pain about his right shoulder for which he subsequently was seen by the undersigned physician in April 2016. At that time his x-ray studies revealed severe degenerative changes of the glenohumeral joint with hypertrophic bony reaction and subtotal obliteration of the joint space with elevation of the humeral head in relationship to the glenoid and pronounced compromise of the subacromial space. Atrophy of the acromion was noted. Findings and treatment options were reviewed with the patient at that time. The pros and cons of continuing with conservative management versus operative intervention that would involve a reverse shoulder arthroplasty were outlined in detail. Emphasis was made regarding the fact that the decision to proceed with surgery would be left entirely to the patient's discretion. At that time the patient was not quite ready to commit any additional treatment and elected to continue with conservative management. He was followed on an outpatient basis during which time he remained symptomatic with pain about the shoulder area. He subsequently underwent a CT scan evaluation the results of which identified end-stage glenohumeral joint arthrosis with what appeared to be a chronic massive rotator cuff tear associated with diffuse fatty atrophy of the supraspinatus and subscapularis and infraspinatus muscles. There was severe acromioclavicular joint arthrosis. The patient continued to experience pain about the shoulder area for which treatment options were again reviewed. The patient considered his options in that regard and has continued to take tramadol for pain management. He returned to the office more recently indicating that he was obviously incapacitated with regards to all activities of daily living having completed a course of physical therapy and trying to conform to exercise activities under his own supervision. Because of his ongoing symptoms and the associated limitations he was ready to consider surgery as previously discussed and in compliance with his wishes he was scheduled for admission at this time in order that reverse shoulder arthroplasty be accomplished. His physical examination at the time of admission revealed mild tenderness generalized about the anterior and superior aspect of the right shoulder. There was restricted mobility of the shoulder in all ranges assessed with pain associated. Forward flexion was limited to 45 degrees, extension 30 degrees, internal rotation to the lateral waist level, external rotation 15-20 degrees. The patient was unable to position his right hand onto his left shoulder. With passive manipulation pain was elicited in the 45-60 degrees range of abduction maneuvering with crepitation elicited. Drop arm test positive. Mild weakness of internal and external rotation. Cranberry Sorter strength intact. Sensory intact. HOSPITAL COURSE Prior to admission to the hospital the patient had undergone medical evaluation and clearance for surgery as completed by his primary care physician, Dr. Anguiano. He was taken to the operating room on 14 May 2017, and on that date underwent a right reverse shoulder arthroplasty completed in an uncomplicated manner. The patient was noted to have tolerated his operative procedure well and his postoperative course stable thereafter. Hemoglobin/hematocrit assessment postoperatively was 12.2 and 36.3 respectively. The patient was mobilized with the assistance of physical therapy intervention. [employer] In[employer] was consulted to assist in discharge planning. The patient indicated his desire to be discharged home and continue his rehabilitation on an outpatient basis. Plans were finalized in this regard and pending medical clearance he was scheduled for discharge on the second postoperative day at which time he was noted to be in a stable condition. He was scheduled to be seen in office follow-up in approximately 4 weeks. CONDITION AT THE TIME OF DISCHARGE Stable. PROGNOSIS Favorable. DISCHARGE MEDICATIONS 1. Hydrocodone 5/325, #60. 2. The patient was also to continue with Eliquis which he had been taking preoperatively. MD DEBBIE Gary/SRINATH /6:31 AM /2:14 PM
[2017-05-17] MEDS ORDERED: GLIP5TAB8 PO (19:50)
[2017-05-17] MEDS ORDERED: MAGN200T PO (19:50)
[2017-05-17] MEDS ORDERED: DULC100C PO (19:50)
[2017-05-17] MEDS ORDERED: NORC5TAB PO (19:50)
== END 2017-05-16 12:49 | disposition home health service (06) | DRG 483 ==
LOC: HSDI 05:19 → N06A 14:33
PROVIDERS: ADMIT Orthopaedic Surgery; ATTEND Orthopaedic Surgery
PROC: 0RRJ00Z Replacement of Right Shoulder Joint with Reverse Ball and Socket Synthetic Substitute, Open Approach (ICD-10-PCS; principal; 2017-05-14 06:45)
DX: M19.011 Primary osteoarthritis, right shoulder (principal); R00.1 Bradycardia, unspecified; E11.9 Type 2 diabetes mellitus without complications; Z79.84 Long term (current) use of oral hypoglycemic drugs; M75.121 Complete rotator cuff tear or rupture of right shoulder, not specified as traumatic; I10 Essential (primary) hypertension; I25.10 Atherosclerotic heart disease of native coronary artery without angina pectoris; Z95.5 Presence of coronary angioplasty implant and graft; E78.5 Hyperlipidemia, unspecified; I48.91 Unspecified atrial fibrillation; Z79.02 Long term (current) use of antithrombotics/antiplatelets; Z79.82 Long term (current) use of aspirin; F17.290 Nicotine dependence, other tobacco product, uncomplicated; Z96.652 Presence of left artificial knee joint
CPT/HCPCS: 73020; 80053; 82948; 85025; 88305; 88311; 94150; C1776; J0131; J0690; J1815; J2250; J2270; J2405; J2710; J3010; J7120

== ENCOUNTER 2017-05-17 19:09 | Emergency (ER) | payer MEDICARE, BC ==
[~2017-05-17] VITALS: Ht 175.3 cm; Wt 107.0 kg
[~2017-05-17 19:09] MED LIST changes: +HYDR-3516 PO
[2017-05-17] MEDS ORDERED: IOHEXOL 350 MG/ML 10 ML VIAL (for RAD DIAG) IVCONTRAST ONE (19:10)
[2017-05-17 19:25] VITALS: BP 141/70; PULSE 95; RESP 18; TEMP 98.7; O2SAT 96
[2017-05-17] MEDS ORDERED: DULC100C PO (19:50)
[2017-05-17] MEDS ORDERED: GLIP5TAB8 PO (19:50)
[2017-05-17] MEDS ORDERED: MAGN200T PO (19:50)
[2017-05-17] MEDS ORDERED: NORC5TAB PO (19:50)
--- NOTE | 2017-05-17 20:44 | PD ---
HPI Chief Complaint: Skin Problem Time Seen by Provider: 20:28 Travel History International Travel<30 days: No Contact w/Intl Traveler<30days: No Traveled to known affect area: No History of Present Illness HPI 76-year-old male presents to the emergency department for complaint of redness swelling and warmth and discomfort to the right anterior chest wall right shoulder and right upper extremity since this evening. Patient also complains of painful respiration to the right upper back. Patient underwent elective right reverse shoulder arthroplasty 05/14/[address] sandra his orthopedist. Patient has done well and was discharged to home last evening. Patient today noted just prior to arrival to the emergency department new symptoms of pain with breathing and right anterior chest and shoulder redness swelling and warmth and pruritus. Patient had just been seen by the home health nurse and a new dressing had been applied to the postoperative wound site the wound site has been no redness no induration and no drainage appears to be healing well. Patient does have a history of atrial fibrillation for which he is prescribed Eliquis as well as PFSH Past Medical History Arthritis: Yes (wrist and knees) Asthma: No Autoimmune Disease: No Heart Rhythm Problems: Yes (Afib with RVR) Cancer: No Cardiac Catheterization: Yes Cardiovascular Problems: Yes (stent, AFIB) High Cholesterol: Yes Chemotherapy: No Chest Pain: No Congestive Heart Failure: No COPD: No Coronary Artery Disease: Yes Diabetes: Yes Patient Takes Glucophage: No Diminished Hearing: No Endocrine: Yes GERD: Yes Genitourinary: No Hepatitis: No Hiatal Hernia: No Hypertension: Yes Immune Disorder: No Kidney Stones: No Psychiatric: No Reproductive: No Respiratory: No Immunizations Current: Yes Radiation Therapy: No Renal Failure: No Sickle Cell Disease: No Sleep Apnea: No Thyroid Disease: No Ulcer: No Tetanus Vaccination: < 5 Years Influenza Vaccination: Yes Past Surgical History Abdominal Surgery: No AICD: No Arteriovenous Shunt: No Body Medical Devices: 1 stent Cardiac Surgery: Yes (CARDIAC STENTS) Coronary Stent: Yes Ear Surgery: No Endocrine Surgery: No Eye Surgery: No Genitourinary Surgery: No Gynecologic Surgery: No Insulin Pump: No Joint Replacement: Yes (left knee) Oral Surgery: No Pacemaker: No Thoracic Surgery: No Other Surgery: Yes Social History Alcohol Use: Yes Tobacco Use: No (1 CIGAR, MOST DAYS) Substance Use: No Allergies-Medications (Allergen,Severity, Reaction): Coded Allergies: No Known Allergies (Verified , 05/17/17) Reported Meds & Prescriptions Reported Meds & Active Scripts Active Reported Dulcolax Stool Softener (Docusate Sodium) 100 Mg Cap 100 Mg PO BID Olmito (Hydrocodone-Acetaminophen) 5-325 mg Tab 1 Tab PO Q6H PRN Magnesium 200 Mg Tab 200 Mg PO DAILY Glipizide 5 Mg Tab 5 Mg PO DAILY Take 30 minutes before a meal Fish Oil ([place]-3 Fatty Acids) 340 Mg-1,000 Mg Cap 1,200 Mg PO BID Nitroglycerin SL (Nitroglycerin) 0.4 Mg Subl 0.4 Mg SL DIRECTED PRN ONE TABLET UNDER THE TONGUE NEEDED FOR CHEST PAIN, MAY REPEAT EVERY FIVE MINUTES FOR A TOTAL OF 3 DOSES OR CALL 911 IF NO RELIEF Lisinopril 10 Mg Tab 10 Mg PO BID Atorvastatin (Atorvastatin Calcium) 40 Mg Tab 40 Mg PO HS Atenolol 25 Mg Tab 25 Mg PO DAILY Aspirin 81 Mg Chew 81 Mg CHEW DAILY Eliquis (Apixaban) 5 Mg Tab 5 Mg PO BID Review of Systems General / Constitutional: No: Fever, Chills HENT: No: Congestion Cardiovascular: No: Chest Pain or Discomfort Respiratory: Positive: Pleuritic Pain, No: Shortness of Breath Gastrointestinal: No: Nausea, Vomiting Genitourinary: No: Flank Pain Musculoskeletal: Positive: Limited ROM (RUEshoulder post op), Pain (right shouldeer redness swelling) Psychiatric: No: Anxiety Endocrine: No: Heat Intolerance Hematologic/Lymphatic: No: Easy Bruising Physical Exam Narrative GENERAL: Well-developed well-nourished male in no acute distress no respiratory distress SKIN: Warm and dry. HEAD: Normocephalic. EYES: No scleral icterus. No injection or drainage. NECK: Supple, trachea midline. No JVD or lymphadenopathy. CARDIOVASCULAR: Regular rate and rhythm without murmurs, gallops, or rubs. RESPIRATORY: Breath sounds equal bilaterally. No accessory muscle use. GASTROINTESTINAL: Abdomen soft, non-tender, nondistended. MUSCULOSKELETAL: No cyanosis, or edema. Attention right proximal upper extremity, shoulder, and anterior chest area of erythema edema warmth without induration fluctuance crepitus subcutaneous emphysema with evidence of healing surgical incision without redness induration drainage tenderness with Steri- Strips dry and in place and dry dressing removed from wound site to inspect wound. Distally extremity is neurovascular tendon intact with capillary refill brisk and less than 2 seconds per digit radial pulse 2+ to palpation. No urticaria. No ecchymosis. No petechia no purpura no vesicles no pustules. No excoriation. BACK: Nontender without obvious deformity. No CVA tenderness. Data Data Last Documented VS Vital Signs Date Time Temp Pulse Resp B/P (MAP) Pulse Ox O2 Delivery O2 Flow Rate FiO2 05/18/17 00:38 99 16 145/73 (97) 96 05/18/17 00:03 98.3 Room Air Orders Orders Basic Metabolic Panel (Bmp) (05/17/17 20:28) Complete Blood Count With Diff (05/17/17 20:28) Blood Culture (05/17/17 20:28) Iv Access Insert/Monitor (05/17/17 20:28) Chest, Pa & Lat (05/17/17 ) Us Arm Venous Doppler (05/17/17 ) Electrocardiogram (05/17/17 ) D-Dimer (05/17/17 21:41) Troponin I (05/17/17 20:38) Ct Pulmonary Angiogram (05/17/17 ) Iohexol 350 Inj (Omnipaque 350 Inj) (05/17/17 19:10) Oral Contrast - Adult (05/17/17 23:09) Apixaban (Eliquis) (05/18/17 00:15) Acetamin-Hydrocod 325-5 Mg (Olmito 5-325 (05/18/17 00:15) Labs Laboratory Tests Test 05/17/17 20:38 White Blood Count 7.3 TH/MM3 Red Blood Count 3.62 MIL/MM3 Hemoglobin 11.4 GM/DL Hematocrit 33.3 % Mean Corpuscular Volume 92.0 FL Mean Corpuscular Hemoglobin 31.4 PG Mean Corpuscular Hemoglobin Concent 34.1 % Red Cell Distribution Width 13.3 % Platelet Count 154 TH/MM3 Mean Platelet Volume 8.8 FL Neutrophils (%) (Auto) 63.2 % Lymphocytes (%) (Auto) 24.6 % Monocytes (%) (Auto) 7.2 % Eosinophils (%) (Auto) 4.2 % Basophils (%) (Auto) 0.8 % Neutrophils # (Auto) 4.6 TH/MM3 Lymphocytes # (Auto) 1.8 TH/MM3 Monocytes # (Auto) 0.5 TH/MM3 Eosinophils # (Auto) 0.3 TH/MM3 Basophils # (Auto) 0.1 TH/MM3 CBC Comment DIFF FINAL Differential Comment D-Dimer Quantitative (PE/DVT) 1.47 MG/L FEU Blood Urea Nitrogen 18 MG/DL Creatinine 1.10 MG/DL Random Glucose 125 MG/DL Calcium Level 8.9 MG/DL Sodium Level 138 MEQ/L Potassium Level 4.3 MEQ/L Chloride Level 104 MEQ/L Carbon Dioxide Level 28.1 MEQ/L Anion Gap 6 MEQ/L Estimat Glomerular Filtration Rate 65 ML/MIN Troponin I LESS THAN 0.02 NG/ML MDM Medical Decision Making Medical Screen Exam Complete: Yes Emergency Medical Condition: Yes Medical Record Reviewed: Yes Interpretation(s) EKG: Atrial fibrillation rate [address] elevation or injury pattern change noted CBC & BMP Diagram 05/17/17 20:38 Calcium Level 8.9 Vital Signs Date Time Temp Pulse Resp B/P (MAP) Pulse Ox O2 Delivery O2 Flow Rate FiO2 05/17/17 21:10 71 18 127/63 (84) 95 Room Air 05/17/17 19:25 98.7 95 18 141/70 (93) 96 Troponin I: Less than 0.02, not elevated D-dimer 1.47, elevated Last Impressions Upper Extremity Ultrasound 05/17/17 0000 Signed Impressions: Service Date/Time: Wednesday, May 17, 2017 21:20 - CONCLUSION: No evidence of deep venous thrombosis. Portions of the subclavian vein could not be well visualized or evaluated due to overlying bandages. Antonio Rajput MD Chest X-Ray 05/17/17 0000 Signed Impressions: Service Date/Time: Wednesday, May 17, 2017 20:53 - CONCLUSION: No acute disease. Status post right shoulder arthroplasty. Antonio Rajput MD CT Angiography 05/17/17 0000 Signed Impressions: Service Date/Time: Wednesday, May 17, 2017 22:27 - CONCLUSION: 1. No evidence of pulmonary embolism. The lungs are clear. 2. Postoperative changes in the right shoulder status post recent arthroplasty with soft tissue swelling and emphysema. Antonio Rajput MD Differential Diagnosis Adverse/allergic localized reaction/tape, postop hematoma, wound infection, abscess, cellulitis, DVT, PE, atypical ACS Narrative Course 36-year-old male status post recent right shoulder surgeries no fever no chills but now just this evening noted to have erythema edema increased warmth at near the postoperative surgical site new onset also complains of pain with deep breathing in the right upper posterior chest. Also some swelling of the right upper extremity is noted ultrasound for DVT chest x-ray EKG labs ordered anticipate may require CT pulmonary angiogram to exclude PE also consider localized wound infection cellulitis or adverse medication reaction verses most likely postoperative hematoma soft tissue swelling with recurrent administration of Eliquis that he takes for atrial fibrillation this medication was resumed postoperatively 9 PM 05/14/17. US negative for DVT d-dimer elevated therefore with postoperative pleuritic pain proceed with CTA pulmonary CT negative for PE; subcutaneous air noted ; cbc wnl patient remains afebrile; call placed to patient's orthopedist; call back from his partner Dr Neville -- recommends no change to medications no antibiotics and follow up with Dr Sandra Physician Communication Physician Communication all placed to patient's orthopedist Dr Sandra --> Dr Neville aware of presentation work up VS ---> post op changes---> will see in follow up with Dr Sandra Diagnosis Primary Impression: Post-operative pain Referrals: Arun Sandra MD call for appointment Patient Instructions: General Instructions Additional Instructions: Continue current medications as presently prescribed Follow-up with your orthopedist call office on Friday to schedule follow-up appointment Monitor temperature every 4 hours with thermometer May use acetaminophen every 4 hours for fever 100.4F or greater Return to the emergency department for any concerns or change in condition Med/Other Pt SpecificInfo: No Change to Meds Disposition: 01 DISCHARGE HOME Condition: Stable Violeta Francis MD May 17, 2017 20:44
[2017-05-17 20:50] LABS: AUTOMATED NEUTROPHIL # 4.6 TH/MM3 (1.8-7.7); BASOPHIL # 0.1 TH/MM3 (0-0.2); BASOPHIL % 0.8 % (0.0-2.0); EOSINOPHIL # 0.3 TH/MM3 (0-0.4); EOSINOPHIL % 4.2 % (0.0-4.0); HEMATOCRIT 33.3 % (39.0-51.0); HEMO FLAGS DIFF FINAL; LYMPH % 24.6 % (9.0-44.0); LYMPHOCYTE # 1.8 TH/MM3 (1.0-4.8); MEAN CORPUSCULAR HEMOGLOBIN 31.4 PG (27.0-34.0); MEAN CORPUSCULAR HGB CONC 34.1 % (32.0-36.0); MONO % 7.2 % (0.0-8.0); NEUT % 63.2 % (16.0-70.0); PLATELET COUNT 154 TH/MM3 (150-450); RED BLOOD COUNT 3.62 MIL/MM3 (4.50-5.90); RED CELL DISTRIBUTION WIDTH 13.3 % (11.6-17.2); WHITE BLOOD COUNT 7.3 TH/MM3 (4.0-11.0)
[2017-05-17 20:58] LABS: CHLORIDE 104 MEQ/L (98-107); POTASSIUM 4.3 MEQ/L (3.5-5.1); SODIUM (NA) 138 MEQ/L (136-145)
[2017-05-17 21:00] LABS: ANION GAP 6 MEQ/L (5-15); BICARBONATE 28.1 MEQ/L (21.0-32.0)
[2017-05-17 21:01] LABS: BLOOD UREA NITROGEN 18 MG/DL (7-18)
[2017-05-17 21:04] LABS: GLOMERULAR FILTRATION RATE 65 ML/MIN (>89)
[2017-05-17 21:10] VITALS: BP 127/63; PULSE 71; RESP 18; O2SAT 95
--- NOTE | 2017-05-17 21:23 | RADRPT ---
EXAM DATE/TIME: 05/17/2017 20:53 [facility] COMPARISON: CHEST PA & LAT, May 01, 2017, 11:18. INDICATIONS : Right arm swelling. Patient recently had right shoulder replacement. MEDICAL HISTORY : Hyperparathyroidism. Diabetes mellitus type II. SURGICAL HISTORY : Coronary artery stent. Right shoulder replacement. ENCOUNTER: Initial ACUITY: 1 day PAIN SCORE: 0/10 LOCATION: Bilateral chest FINDINGS: PA and lateral views of the chest demonstrate the lungs to be symmetrically aerated without evidence of mass, infiltrate or effusion. The cardiomediastinal contours are unremarkable. Status post right shoulder arthroplasty. Atherosclerotic calcifications are present in the aorta. CONCLUSION: No acute disease. Status post right shoulder arthroplasty. Antonio Rajput MD on May 17, 2017 at 21:15 Board Certified Radiologist. This report was verified electronically.
--- NOTE | 2017-05-17 21:54 | RADRPT ---
EXAM DATE/TIME: 05/17/2017 21:20 [facility] COMPARISON: No previous studies available for comparison. INDICATIONS : Right arm swelling. MEDICAL HISTORY : Hypercholesterolemia. Hypertension. Gastroesophageal reflux disease. Glasses. Numbness. Syncope. Atri al fibrillation. Coronary artery disease. Arthritis. SURGICAL HISTORY : Coronary artery stent. Left knee total knee replacement. ENCOUNTER: Initial ACUITY: 1 day PAIN SCORE: 7/10 LOCATION: Right arm. FINDINGS: There is spontaneous flow documented in the brachial, basilic, cephalic, and axillary veins. The vess els are compressible and augmentation response is documented.Pportions of the subclavian vein could n ot be well visualized due to overlying bandages. No filling defects are seen. The flow is phasic wit h respiration. Direction of flow in the jugular vein is caudal. CONCLUSION: No evidence of deep venous thrombosis. Portions of the subclavian vein could not be w ell visualized or evaluated due to overlying bandages. Antonio Rajput MD on May 17, 2017 at 21:49 Board Certified Radiologist. This report was verified electronically.
--- NOTE | 2017-05-17 22:54 | RADRPT ---
EXAM DATE/TIME: 05/17/2017 22:27 [facility] COMPARISON: CHEST PA & LAT, May 17, 2017, 20:53. INDICATIONS : Status post right shoulder surgery. Redness and swelling at site. Right chest pain. Elevated D-Dimer IV CONTRAST: 74 cc Omnipaque 350 (iohexol) IV RADIATION DOSE: 21.39 CTDIvol (mGy) MEDICAL HISTORY : Diabetes mellitus type 2. Gastroesophageal reflux disease. Hypertension. SURGICAL HISTORY : Coronary artery stent. ENCOUNTER: Initial ACUITY: 1 day PAIN SCALE: 7/10 LOCATION: Right chest TECHNIQUE: Volumetric scanning of the chest was performed using a pulmonary embolism protocol MIP images were re constructed. Using automated exposure control and adjustment of the mA and/or kV according to patien t size, radiation dose was kept as low as reasonably achievable to obtain optimal diagnostic quality images. DICOM format image data is available electronically for review and comparison. Follow-up recommendations for detected pulmonary nodules are based at a minimum on nodule size and pa tient risk factors according to Fleischner Society Guidelines. FINDINGS: PULMONARY ARTERIES: No filling defects are seen in the pulmonary arteries through the segmental level. LUNGS: There is no consolidation or pneumothorax . No concerning pulmonary nodule is visualized. PLEURAE: There is no pleural thickening or pleural effusion. MEDIASTINUM: There is good visualization of the great vessels of the middle mediastinum. No evidence of mediastin al or hilar adenopathy/mass. A coronary artery calcifications are present. MUSCULOSKELETAL: The patient is status post right shoulder arthroplasty with arthroplasty components in place. There i s adjacent soft tissue swelling as well as multiple gas bubbles and subcutaneous emphysema. MISCELLANEOUS: The visualized upper abdominal organs demonstrate no acute abnormality. CONCLUSION: 1. No evidence of pulmonary embolism. The lungs are clear. 2. Postoperative changes in the right shoulder status post recent arthroplasty with soft tissue swell ing and emphysema. Antonio Rajput MD on May 17, 2017 at 22:50 Board Certified Radiologist. This report was verified electronically.
[2017-05-17 23:00] VITALS: BP 131/68; PULSE 66; RESP 18; O2SAT 97
[2017-05-18 00:03] VITALS: BP 131/66; PULSE 90; RESP 18; TEMP 98.3; O2SAT 96
[2017-05-18] MEDS ORDERED: APIXABAN 5 MG TABLET PO ONE (00:15)
[2017-05-18] MEDS ORDERED: ACETAMINOPHEN/HYDROcodone 325 MG/5 MG TAB PO ONE (00:15)
[2017-05-18 00:38] VITALS: BP 145/73
--- NOTE | 2017-05-18 13:37 | EKG ---
Date Performed: 05/17/2017 Time Performed: 20:40:23 PTAGE: 76 years EKG: ATRIAL FIBRILLATION ABNORMAL RHYTHM ECG PREVIOUS TRACING : 05/01/2017 10.44 Since previous tracing, there is rhythm change from sinus b radycardia to atrial fibrillation. DOCTOR: Tomer Boykin Interpretating Date/Time 05/18/2017 13:36:40
== END 2017-05-18 00:56 | disposition home or self-care (01) ==
LOC: PHED 19:09
DX: G89.18 Other acute postprocedural pain (principal); I48.91 Unspecified atrial fibrillation; I10 Essential (primary) hypertension; Z72.0 Tobacco use; Z79.01 Long term (current) use of anticoagulants; Z96.611 Presence of right artificial shoulder joint
CPT/HCPCS: 71020; 71275; 80048; 84484; 85025; 85379; 87040; 93005; 93971; 99285; Q9967

== ENCOUNTER 2017-12-21 12:31 | Observation (INO) | payer MEDICARE, BC ==
[~2017-12-21] VITALS: Ht 175.3 cm; Wt 103.2 kg
[2017-12-21] VITALS (9 sets, daily range): BP systolic 117–143; BP diastolic 61–83; PULSE 58–71; RESP 16–24; TEMP 96.7–97.9; O2SAT 96–98
[~2017-12-21 12:31] MED LIST changes: +ASPI-516 CHEW; -ASPI81CH CHEW; +DULC100C PO; -HYDR-3516 PO; -ISOS30TA3 PO; +MAGN200T PO; +NORC5TAB PO
[2017-12-21] MEDS ORDERED: SODIUM CHLOR 0.9% 1000 ML INJ 1,000 ML IV ONE (12:53)
[2017-12-21] MEDS ORDERED: SODIUM CHLORIDE 0.9% FLUSH 10 ML FLUSH IVF PRN (13:00)
--- NOTE | 2017-12-21 13:16 | PD ---
HPI Chief Complaint: Syncope/Near-Syncope Time Seen by Provider: 12:50 Travel History International Travel<30 days: No Contact w/Intl Traveler<30days: No Traveled to known affect area: No History of Present Illness HPI Patient is a 77 year old male with history of afib, CAD with cardiac stents currently taking Eliquis, presents to the ER for evaluation of syncope. Patient reports that he was at [employer] today when he had a syncopal episode. Patient reports that he went down on his knees to pray and all of a sudden felt lightheaded and "funny." He immediately sat up and leaned against his and reports that he "passed out" for a few seconds. Reports that he was laid down and at that time (did not suffer any trauma or injury to his head), he didn't want to be talk to anyone as he wasn't feeling well. Denies any headache or chest pain or shortness of breath during this episode. Patient reports that once he arrived in the emergency room, he has complete resolution of symptoms. Patient reports that he was recently evaluated for syncope as he had a syncopal episode in [facility]. Patient reports that he does follow-up with a football pad repairer, Dr. Santos, who also had him on a director of cardiac rehabilitation. Reports " they can't find out why I passed out." Patient currently denies any headaches or dizziness, patient denies any chest pain or shortness of breath. Patient with no complaints. PFSH Past Medical History Hx Anticoagulant Therapy: Yes (Eliquis ) Arthritis: Yes (wrist and knees) Asthma: No Autoimmune Disease: No Heart Rhythm Problems: Yes (Afib with RVR) Cancer: No Cardiac Catheterization: Yes Cardiovascular Problems: Yes (A Fib, HTN) High Cholesterol: Yes Chemotherapy: No Chest Pain: No Congestive Heart Failure: No COPD: No Coronary Artery Disease: Yes Diabetes: Yes Diminished Hearing: No Endocrine: Yes GERD: Yes Genitourinary: No Hepatitis: No Hiatal Hernia: No Hypertension: Yes Immune Disorder: No Kidney Stones: No Psychiatric: No Reproductive: No Respiratory: No Immunizations Current: Yes Radiation Therapy: No Renal Failure: No Sickle Cell Disease: No Sleep Apnea: No Thyroid Disease: No Ulcer: No Past Surgical History Abdominal Surgery: No AICD: No Arteriovenous Shunt: No Body Medical Devices: 1 stent Cardiac Surgery: Yes (CARDIAC STENTS) Coronary Stent: Yes Ear Surgery: No Endocrine Surgery: No Eye Surgery: No Genitourinary Surgery: No Gynecologic Surgery: No Insulin Pump: No Joint Replacement: Yes (left knee) Oral Surgery: No Pacemaker: No Thoracic Surgery: No Other Surgery: Yes Social History Alcohol Use: Yes Tobacco Use: No (1 CIGAR, MOST DAYS) Substance Use: No Allergies-Medications (Allergen,Severity, Reaction): Coded Allergies: No Known Allergies (Verified , 05/17/17) Reported Meds & Prescriptions Reported Meds & Active Scripts Active Reported Isosorbide Mononitrate 20 Mg Tab 30 Mg PO DAILY Take 2 doses 7 hours apart. Glipizide 5 Mg Tab 5 Mg PO DAILY Take 30 minutes before a meal Fish Oil ([place]-3 Fatty Acids) 340 Mg-1,000 Mg Cap 1,200 Mg PO BID Nitroglycerin SL (Nitroglycerin) 0.4 Mg Subl 0.4 Mg SL DIRECTED PRN ONE TABLET UNDER THE TONGUE NEEDED FOR CHEST PAIN, MAY REPEAT EVERY FIVE MINUTES FOR A TOTAL OF 3 DOSES OR CALL 911 IF NO RELIEF Lisinopril 10 Mg Tab 10 Mg PO BID Atorvastatin (Atorvastatin Calcium) 40 Mg Tab 40 Mg PO HS Atenolol 25 Mg Tab 25 Mg PO DAILY Aspirin 81 Mg Chew 81 Mg CHEW DAILY Eliquis (Apixaban) 5 Mg Tab 5 Mg PO BID Review of Systems General / Constitutional: No: Fever Eyes: No: Visual changes HENT: No: Headaches Cardiovascular: No: Chest Pain or Discomfort Respiratory: No: Shortness of Breath Gastrointestinal: No: Abdominal Pain Genitourinary: No: Dysuria Musculoskeletal: No: Pain Skin: No Rash Neurologic: Positive: Syncope, No: Weakness Psychiatric: No: Depression Endocrine: No: Polydipsia Hematologic/Lymphatic: No: Easy Bruising Physical Exam Narrative GENERAL: No acute distress, nontoxic SKIN: Focused skin assessment warm/dry. HEAD: Atraumatic. Normocephalic. EYES: Pupils equal and round. No scleral icterus. No injection or drainage. ENT: No nasal bleeding or discharge. Mucous membranes pink and moist. NECK: Trachea midline. No JVD. CARDIOVASCULAR: Irregular irregular rate and rhythm. No murmur appreciated. RESPIRATORY: No accessory muscle use. Clear to auscultation. Breath sounds equal bilaterally. GASTROINTESTINAL: Abdomen soft, non-tender, nondistended. Hepatic and splenic margins not palpable. MUSCULOSKELETAL: No obvious deformities. No clubbing. No cyanosis. No edema. NEUROLOGICAL: Awake and alert. No obvious cranial nerve deficits. Motor grossly within normal limits. Normal speech. PSYCHIATRIC: Appropriate mood and affect; insight and judgment normal. Data Data Last Documented VS Vital Signs Date Time Temp Pulse Resp B/P (MAP) Pulse Ox O2 Delivery O2 Flow Rate FiO2 12/21/17 14:37 71 16 125/68 (87) 98 Room Air 12/21/17 12:31 97.9 Orders Orders Electrocardiogram (12/21/17 12:53) Complete Blood Count With Diff (12/21/17 12:53) Comprehensive Metabolic Panel (12/21/17 12:53) Magnesium (Mg) (12/21/17 12:53) B-Type Natriuretic Peptide (12/21/17 12:53) Ckmb (Isoenzyme) Profile (12/21/17 12:53) Troponin I (12/21/17 12:53) Act Partial Throm Time (Ptt) (12/21/17 12:53) Prothrombin Time / Inr (Pt) (12/21/17 12:53) Urinalysis - C+S If Indicated (12/21/17 12:53) Chest, Single Ap (12/21/17 12:53) Ecg Monitoring (12/21/17 12:53) Iv Access Insert/Monitor (12/21/17 12:53) Oximetry (12/21/17 12:53) Sodium Chloride 0.9% Flush (Ns Flush) (12/21/17 13:00) Sodium Chlor 0.9% 1000 Ml Inj (Ns 1000 M (12/21/17 12:53) CKMB (12/21/17 13:15) CKMB% (12/21/17 13:15) Aspirin (Aspirin) (12/21/17 14:30) Labs Laboratory Tests Test 12/21/17 13:15 White Blood Count 6.4 TH/MM3 Red Blood Count 4.32 MIL/MM3 Hemoglobin 13.5 GM/DL Hematocrit 39.3 % Mean Corpuscular Volume 91.0 FL Mean Corpuscular Hemoglobin 31.3 PG Mean Corpuscular Hemoglobin Concent 34.4 % Red Cell Distribution Width 13.3 % Platelet Count 149 TH/MM3 Mean Platelet Volume 9.2 FL Neutrophils (%) (Auto) 64.7 % Lymphocytes (%) (Auto) 24.5 % Monocytes (%) (Auto) 5.2 % Eosinophils (%) (Auto) 4.0 % Basophils (%) (Auto) 1.6 % Neutrophils # (Auto) 4.1 TH/MM3 Lymphocytes # (Auto) 1.6 TH/MM3 Monocytes # (Auto) 0.3 TH/MM3 Eosinophils # (Auto) 0.3 TH/MM3 Basophils # (Auto) 0.1 TH/MM3 CBC Comment DIFF FINAL Differential Comment Prothrombin Time 10.7 SEC Prothromb Time International Ratio 1.1 RATIO Activated Partial Thromboplast Time 22.9 SEC Blood Urea Nitrogen 16 MG/DL Creatinine 0.87 MG/DL Random Glucose 138 MG/DL Total Protein 6.4 GM/DL Albumin 3.3 GM/DL Calcium Level 8.3 MG/DL Magnesium Level 2.1 MG/DL Alkaline Phosphatase 24 U/L Aspartate Amino Transf (AST/SGOT) 28 U/L Alanine Aminotransferase (ALT/SGPT) 19 U/L Total Bilirubin 0.7 MG/DL Sodium Level 139 MEQ/L Potassium Level 5.4 MEQ/L Chloride Level 109 MEQ/L Carbon Dioxide Level 24.5 MEQ/L Anion Gap 6 MEQ/L Estimat Glomerular Filtration Rate 85 ML/MIN Total Creatine Kinase 183 U/L Creatine Kinase MB 4.4 NG/ML Troponin I LESS THAN 0.02 NG/ML B-Type Natriuretic Peptide 205 PG/ML MDM Medical Decision Making Medical Screen Exam Complete: Yes Emergency Medical Condition: Yes Medical Record Reviewed: Yes Interpretation(s) EKG at 1257: Atrial fibrillation at 69 bpm, QT/QTc 381/29, no acute changes Vital Signs Date Time Temp Pulse Resp B/P (MAP) Pulse Ox O2 Delivery O2 Flow Rate FiO2 12/21/17 12:31 97.9 58 16 125/70 (88) 96 Differential Diagnosis ACS, arrhythmia, electrolyte abnormality, CVA Narrative Course Patient is a 77-year-old male who presents the emergency room after he experienced a syncopal episode while at [employer] today. Patient with no chest pain or shortness of breath, denies any headache or dizziness, patient completely asymptomatic at this time. During the course of the patients emergency department visit, the patients history, examination, and differential diagnosis were reviewed with the patient. The patient was placed on a director of cardiac rehabilitation with oximetry and frequent blood pressure monitoring. The patient had an IV access obtained and blood work sent for analysis. The patient was initially provided IVF and aspirin The patients laboratory studies were reviewed and remarkable for: Laboratory Tests Test 12/21/17 13:15 White Blood Count 6.4 TH/MM3 (4.0-11.0) Red Blood Count 4.32 MIL/MM3 (4.50-5.90) Hemoglobin 13.5 GM/DL (13.0-17.0) Hematocrit 39.3 % (39.0-51.0) Mean Corpuscular Volume 91.0 FL (80.0-100.0) Mean Corpuscular Hemoglobin 31.3 PG (27.0-34.0) Mean Corpuscular Hemoglobin Concent 34.4 % (32.0-36.0) Red Cell Distribution Width 13.3 % (11.6-17.2) Platelet Count 149 TH/MM3 (150-450) Mean Platelet Volume 9.2 FL (7.0-11.0) Neutrophils (%) (Auto) 64.7 % (16.0-70.0) Lymphocytes (%) (Auto) 24.5 % (9.0-44.0) Monocytes (%) (Auto) 5.2 % (0.0-8.0) Eosinophils (%) (Auto) 4.0 % (0.0-4.0) Basophils (%) (Auto) 1.6 % (0.0-2.0) Neutrophils # (Auto) 4.1 TH/MM3 (1.8-7.7) Lymphocytes # (Auto) 1.6 TH/MM3 (1.0-4.8) Monocytes # (Auto) 0.3 TH/MM3 (0-0.9) Eosinophils # (Auto) 0.3 TH/MM3 (0-0.4) Basophils # (Auto) 0.1 TH/MM3 (0-0.2) CBC Comment DIFF FINAL Differential Comment Prothrombin Time 10.7 SEC (9.8-11.6) Prothromb Time International Ratio 1.1 RATIO Activated Partial Thromboplast Time 22.9 SEC (24.3-30.1) Blood Urea Nitrogen 16 MG/DL (7-18) Creatinine 0.87 MG/DL (0.60-1.30) Random Glucose 138 MG/DL (74-106) Total Protein 6.4 GM/DL (6.4-8.2) Albumin 3.3 GM/DL (3.4-5.0) Calcium Level 8.3 MG/DL (8.5-10.1) Magnesium Level 2.1 MG/DL (1.5-2.5) Alkaline Phosphatase 24 U/L (45-117) Aspartate Amino Transf (AST/SGOT) 28 U/L (15-37) Alanine Aminotransferase (ALT/SGPT) 19 U/L (12-78) Total Bilirubin 0.7 MG/DL (0.2-1.0) Sodium Level 139 MEQ/L (136-145) Potassium Level 5.4 MEQ/L (3.5-5.1) Chloride Level 109 MEQ/L (98-107) Carbon Dioxide Level 24.5 MEQ/L (21.0-32.0) Anion Gap 6 MEQ/L (5-15) Estimat Glomerular Filtration Rate 85 ML/MIN (>89) Total Creatine Kinase 183 U/L (39-308) Creatine Kinase MB 4.4 NG/ML (0.5-3.6) Troponin I LESS THAN 0.02 NG/ML B-Type Natriuretic Peptide 205 PG/ML (0-100) I reviewed all labs and studies with patient in detail, will obs for syncope workup case reviewed with Dr. Chatman who accepts pt to service Diagnosis Primary Impression: Syncope Qualified Codes: R55 - Syncope and collapse Admitting Information Admitting Physician Requests: Observation Adele Goddard DO Dec 21, 2017 13:16
[2017-12-21 13:28] LABS: AUTOMATED NEUTROPHIL # 4.1 TH/MM3 (1.8-7.7); BASOPHIL # 0.1 TH/MM3 (0-0.2); BASOPHIL % 1.6 % (0.0-2.0); EOSINOPHIL # 0.3 TH/MM3 (0-0.4); HEMATOCRIT 39.3 % (39.0-51.0); HEMOGLOBIN 13.5 GM/DL (13.0-17.0); LYMPH % 24.5 % (9.0-44.0); LYMPHOCYTE # 1.6 TH/MM3 (1.0-4.8); MEAN CORPUSCULAR HEMOGLOBIN 31.3 PG (27.0-34.0); MEAN CORPUSCULAR HGB CONC 34.4 % (32.0-36.0); MEAN PLATELET VOLUME 9.2 FL (7.0-11.0); MONO % 5.2 % (0.0-8.0); MONOCYTE # 0.3 TH/MM3 (0-0.9); NEUT % 64.7 % (16.0-70.0); PLATELET COUNT 149 TH/MM3 (150-450); RED BLOOD COUNT 4.32 MIL/MM3 (4.50-5.90); RED CELL DISTRIBUTION WIDTH 13.3 % (11.6-17.2); WHITE BLOOD COUNT 6.4 TH/MM3 (4.0-11.0)
[2017-12-21 13:40] LABS: CHLORIDE 109 MEQ/L (98-107); SODIUM (NA) 139 MEQ/L (136-145)
[2017-12-21 13:45] LABS: ALBUMIN 3.3 GM/DL (3.4-5.0); BICARBONATE 24.5 MEQ/L (21.0-32.0); BLOOD UREA NITROGEN 16 MG/DL (7-18); CALCIUM 8.3 MG/DL (8.5-10.1); GLUCOSE,RANDOM 138 MG/DL (74-106); INTERNATIONAL NORMALIZED RATIO 1.1 RATIO; MAGNESIUM 2.1 MG/DL (1.5-2.5); PROTHROMBIN TIME - PATIENT 10.7 SEC (9.8-11.6)
[2017-12-21 13:48] LABS: ALT (GPT) 19 U/L (12-78); AST (GOT) 28 U/L (15-37); CREATININE 0.87 MG/DL (0.60-1.30); GLOMERULAR FILTRATION RATE 85 ML/MIN (>89)
[2017-12-21 13:50] LABS: TOTAL BILIRUBIN ADULT 0.7 MG/DL (0.2-1.0); TOTAL PROTEIN 6.4 GM/DL (6.4-8.2)
[2017-12-21 13:51] LABS: ALKALINE PHOSPHATASE 24 U/L (45-117)
[2017-12-21 13:53] LABS: TROPONIN I LESS THAN 0.02 NG/ML (0.02-0.05)
[2017-12-21] MEDS ORDERED: ISOS20TA PO (14:16)
[2017-12-21] MEDS ORDERED: ASPIRIN 325 MG TAB PO ONE (14:30)
--- NOTE | 2017-12-21 15:01 | RADRPT ---
EXAM DATE/TIME: 12/21/2017 13:43 [facility] COMPARISON: CHEST SINGLE AP, October 12, 2015, 10:15. INDICATIONS : Syncopal episodes x 3 today MEDICAL HISTORY : Diabetes mellitus type II. Hypertension SURGICAL HISTORY : Coronary artery stent. ENCOUNTER: Initial ACUITY: 1 day PAIN SCORE: 0/10 LOCATION: Bilateral chest FINDINGS: A single view of the chest demonstrates the lungs to be symmetrically aerated without evidence of mas s, infiltrate or effusion. The cardiomediastinal contours are unremarkable. There is a right shoulde r prosthesis. There is degenerative change at the left glenohumeral joint including high riding humer al head. CONCLUSION: No acute disease. Aakash Brito MD on December 21, 2017 at 14:57 Board Certified Radiologist. This report was verified electronically.
--- NOTE | 2017-12-21 15:53 | HHI.HP ---
[facility] Service [facility] Primary Care Physician Felipe Anguiano MD Admission Diagnosis Syncope Diagnoses: Chief Complaint: Passing Travel History International Travel<30 Days: No Contact w/Intl Traveler <30 Da: No Traveled to Known Affected Are: No History of Present Illness 77-year-old white male admitted for syncope Patient was in his usual state of health until he was at [employer] today and trying to get up from a kneeling position into a sitting position when he felt very lightheaded and ultimately passed out. He tried to give his meclizine pill to his so that she can administer to him in the midst of becoming lightheaded but he had passed out by that point. When he awoke he was surrounded by EMS and was nauseated and was diaphoretic. He denies having any chest pain or shortness of breath surrounding the incident. In the emergency department he had documented blood pressures of 125 over 70s. The patient was ordered normal saline IV fluids by the ER before I could order orthostatic vital signs on the patient. EKG was obtained which I independently reviewed which showed A. fib with a stable rate. Blood work was unremarkable, enzymes negative. The patient's son who is at the bedside says that the patient also repeatedly complained of lightheadedness when the nurse prompted him from a lying position to a sitting position on his bed. Patient states that his current presentation has happened to him twice in the past, most recently happened in August 4 months ago and had already been worked up in [place] for this with a Holter monitor after discharge with no findings noted. Patient says he has ongoing intermittent tinnitus and was diagnosed with vertigo as well and occasionally takes meclizine. He complains a lot about chronically impaired gait with poor balance with his knees and is frustrated about this. Says he has had left knee surgery right shoulder surgery and is anticipating right knee surgery as well. Review of Systems Except as stated in HPI: all other systems reviewed are Neg Past Family Social History Past Medical History Coronary artery disease with stenting Atrial fibrillation Left knee replacement Right shoulder surgery Allergies: Coded Allergies: No Known Allergies (Verified , 05/17/17) Family History Heart disease, hypertension Social History Intermittently smokes cigars, drinks socially and lightly Physical Exam Vital Signs Vital Signs Date Time Temp Pulse Resp B/P (MAP) Pulse Ox O2 Delivery O2 Flow Rate FiO2 12/21/17 15:45 74 16 126/73 (90) 97 12/21/17 15:42 74 23 129/61 (83) 80 24 132/67 (88) 73 24 126/73 (90) 12/21/17 14:37 71 16 125/68 (87) 98 Room Air 12/21/17 13:15 16 96 Room Air 12/21/17 12:35 Room Air 12/21/17 12:31 97.9 58 16 125/70 (88) 96 Physical Exam VS: afebrile GENERAL: Sitting up in bed, awake, alert, no acute distress SKIN: Warm and dry. EYES: No scleral icterus. No injection or drainage. ENT: No nasal bleeding or discharge. Mucous membranes pink and moist. CARDIOVASCULAR: Regular rate, regular rhythm, no murmurs RESPIRATORY: No accessory muscle use. Clear to auscultation. Breath sounds equal bilaterally. GASTROINTESTINAL: Abdomen soft, non-tender, nondistended. Extremities: No clubbing, cyanosis, or edema. No obvious deformities. MUSCULOSKELETAL:adequate muscle bulk and tone for age and habitus NEUROLOGICAL: Awake and alert. No obvious cranial nerve deficits. No facial droop nor slurred speech noted. PSYCHIATRIC: Appropriate mood and affect; insight and judgment normal. Laboratory Laboratory Tests Test 12/21/17 13:15 White Blood Count 6.4 Red Blood Count 4.32 Hemoglobin 13.5 Hematocrit 39.3 Mean Corpuscular Volume 91.0 Mean Corpuscular Hemoglobin 31.3 Mean Corpuscular Hemoglobin Concent 34.4 Red Cell Distribution Width 13.3 Platelet Count 149 Mean Platelet Volume 9.2 Neutrophils (%) (Auto) 64.7 Lymphocytes (%) (Auto) 24.5 Monocytes (%) (Auto) 5.2 Eosinophils (%) (Auto) 4.0 Basophils (%) (Auto) 1.6 Neutrophils # (Auto) 4.1 Lymphocytes # (Auto) 1.6 Monocytes # (Auto) 0.3 Eosinophils # (Auto) 0.3 Basophils # (Auto) 0.1 CBC Comment DIFF FINAL Differential Comment Prothrombin Time 10.7 Prothromb Time International Ratio 1.1 Activated Partial Thromboplast Time 22.9 Blood Urea Nitrogen 16 Creatinine 0.87 Random Glucose 138 Total Protein 6.4 Albumin 3.3 Calcium Level 8.3 Magnesium Level 2.1 Alkaline Phosphatase 24 Aspartate Amino Transf (AST/SGOT) 28 Alanine Aminotransferase (ALT/SGPT) 19 Total Bilirubin 0.7 Sodium Level 139 Potassium Level 5.4 Chloride Level 109 Carbon Dioxide Level 24.5 Anion Gap 6 Estimat Glomerular Filtration Rate 85 Total Creatine Kinase 183 Creatine Kinase MB 4.4 Troponin I LESS THAN 0.02 B-Type Natriuretic Peptide 205 Result Diagram: 12/21/17 1315 12/21/17 1315 Imaging Last Impressions Chest X-Ray 12/21/17 1253 Signed Impressions: Service Date/Time: Thursday, December 21, 2017 13:43 - CONCLUSION: No acute disease. MD Ghazala Ruano VTE Risk Assessment Ghazala VTE Risk Assessment: Mod/High Risk (score >= 2) Neptalirini Risk Assessment Model Point Value = 1 Point Value = 2 Point Value = 3 Point Value = 5 Age 41-60 Minor surgery BMI > 25 kg/m2 Swollen legs Varicose veins or History of unexplained or recurrent spontaneous Oral contraceptives or hormone replacement Sepsis (< 1 month) Serious lung disease, including pneumonia (< 1 month) Abnormal pulmonary function Acute myocardial infarction Congestive heart failure (< 1 month) History of inflammatory bowel disease Medical patient at bed rest Age 61-74 Arthroscopic surgery Major open surgery (> 45 min) Laparoscopic surgery (> 45 min) Malignancy Confined to bed (> 72 hours) Immobilizing plaster cast Central venous access Age >= 75 History of VTE Family history of VTE Factor V Leiden Prothrombin [id number] Lupus anticoagulant Anticardiolipin antibodies Elevated serum homocysteine Heparin-induced thrombocytopenia Other congenital or acquired thrombophilia Stroke (< 1 month) Elective arthroplasty Hip, pelvis, or leg fracture Acute spinal cord injury (< 1 month) Prophylaxis Regimen Total Risk Factor Score Risk Level Prophylaxis Regimen 0-1 Low Early ambulation 2 Moderate Order ONE of the following: *Sequential Compression Device (SCD) *Heparin 5000 units SQ BID 3-4 Higher Order ONE of the following medications: *Heparin 5000 units SQ TID *Enoxaparin/Lovenox 40 mg SQ daily (WT < 150 kg, CrCl > 30 mL/min) *Enoxaparin/Lovenox 30 mg SQ daily (WT < 150 kg, CrCl > 10-29 mL/min) *Enoxaparin/Lovenox 30 mg SQ BID (WT < 150 kg, CrCl > 30 mL/min) AND/OR *Sequential Compression Device (SCD) 5 or more Highest Order ONE of the following medications: *Heparin 5000 units SQ TID (Preferred with Epidurals) *Enoxaparin/Lovenox 40 mg SQ daily (WT < 150 kg, CrCl > 30 mL/min) *Enoxaparin/Lovenox 30 mg SQ daily (WT < 150 kg, CrCl > 10-29 mL/min) *Enoxaparin/Lovenox 30 mg SQ BID (WT < 150 kg, CrCl > 30 mL/min) AND *Sequential Compression Device (SCD) Assessment and Plan Assessment and Plan 77-year-old white male admitted for syncope Syncope -Very convincing of orthostatic hypotension, unable to fully assess for orthostatic hypotension given that normal saline has been ordered already by the time orthostatic vital signs are being collected -Mg wnl; ordering phos and TSH levels -PT eval -Discussed case with patient's dye range operator cloth, will discharge in a.m. and will discontinue patient's isosorbide mononitrate continue his atenolol and lisinopril for his blood pressure. -Telemetry Hyperkalemia -Etiology is unclear but will hold home lisinopril, may consider reducing dose for discharge tomorrow -Repeat BMP in a.m., should improve with IV fluids by tomorrow A. fib -Eliquis and atenolol Hypertension -Hold home isosorbide nitrate per cardiology recommendations, continue atenolol and lisinopril Gabriele Lew MD Dec 21, 2017 15:53
[2017-12-21] MEDS: glipiZIDE 5 MG TAB PO SCH (16:00)
[2017-12-21 16:28] LABS: PHOSPHORUS 3.7 MG/DL (2.5-4.9)
[2017-12-21] MEDS: ATENOLOL 25 MG TAB PO SCH (16:41)
[2017-12-21 16:53] LABS: BILIRUBIN, URINE NEG (NEG); BLOOD, URINE NEG (NEG); GLUCOSE,URINE NEG (NEG); KETONE, URINE NEG (NEG); NITRITE,URINE NEG (NEG); URINE COLOR YELLOW (YELLW/STRAW); URINE LEUKOCYTE ESTERASE NEG (NEG)
[2017-12-21 16:59] LABS: RBC, URINE 0-3 /hpf (0-3); SQUAMOUS EPITHELIAL CELL URINE 0-5 /hpf (0-5)
[2017-12-21] MEDS ORDERED: ATORVASTATIN 40 MG TAB PO SCH (21:00)
[2017-12-21] MEDS ORDERED: NON-FORMULARY DRUG (Omega-3 Fatty Acids (Fish Oil) 1,200 MG) PO SCH (21:00)
[2017-12-21] MEDS: APIXABAN 5 MG TABLET PO SCH (21:17)
[2017-12-22 04:14] VITALS: BP 113/58; PULSE 65; RESP 20; TEMP 97.1; O2SAT 97
[2017-12-22 07:08] LABS: BICARBONATE 28.3 MEQ/L (21.0-32.0); BLOOD UREA NITROGEN 17 MG/DL (7-18); CALCIUM 8.3 MG/DL (8.5-10.1); CHLORIDE 109 MEQ/L (98-107); CREATININE 0.87 MG/DL (0.60-1.30); GLOMERULAR FILTRATION RATE 85 ML/MIN (>89); GLUCOSE,RANDOM 114 MG/DL (74-106); SODIUM (NA) 142 MEQ/L (136-145); TROPONIN I LESS THAN 0.02 NG/ML (0.02-0.05)
[2017-12-22] MEDS: glipiZIDE 5 MG TAB PO SCH (07:41)
[2017-12-22] MEDS: ATENOLOL 25 MG TAB PO SCH (07:41)
[2017-12-22] MEDS: APIXABAN 5 MG TABLET PO SCH (07:41)
[2017-12-22 08:00] VITALS: PULSE 63
[2017-12-22 08:25] VITALS: BP 148/72; PULSE 63; RESP 18; TEMP 96.3; O2SAT 97
--- NOTE | 2017-12-22 09:15 | HHI.DCPOC ---
Discharge Care Plan Diagnosis: (1) Syncope Goals to Promote Your Health * To prevent worsening of your condition and complications * To maintain your health at the optimal level Directions to Meet Your Goals Take your medications as prescribed Follow your dietary instruction Follow activity as directed Keep your appointments as scheduled Take your immunizations and boosters as scheduled If your symptoms worsen call your PCP, if no PCP go to Urgent Care Center or Emergency Room Smoking is Dangerous to Your Health. Avoid second hand smoke Call the 24-hour hour crisis hotline for domestic abuse at David Sandhu Dec 22, 2017 09:15
[2017-12-22] MEDS ORDERED: LISI-519 PO (09:28)
--- NOTE | 2017-12-22 09:29 | HHI.PR ---
Subjective Remarks Patient seen and examined today for follow-up on recurrent syncope. Patient is sitting in chair without any complaints today. Blood pressure stable. Patient remains afebrile. Did discuss with patient and extensively on workup that has been done. Discussion with Dr. Monroe. Patient had extensive workup done in outpatient setting by document management technician. Packer Denture indicates patient is to follow-up with him upon discharge for possible loop recorder. Objective Vitals Vital Signs Date Time Temp Pulse Resp B/P (MAP) Pulse Ox O2 Delivery O2 Flow Rate FiO2 12/22/17 08:25 96.3 63 18 148/72 (97) 97 12/22/17 08:00 63 12/22/17 04:14 97.1 65 20 113/58 (76) 97 12/21/17 23:01 96.7 70 18 143/78 (99) 98 117/83 (94) 142/77 (98) 12/21/17 20:00 66 12/21/17 20:00 97.7 68 18 120/66 (84) 97 12/21/17 19:00 97.7 68 18 120/66 (84) 97 12/21/17 15:45 74 16 126/73 (90) 97 12/21/17 15:42 74 23 129/61 (83) 80 24 132/67 (88) 73 24 126/73 (90) 12/21/17 15:00 97.4 66 18 122/70 (87) 97 12/21/17 14:37 71 16 125/68 (87) 98 Room Air 12/21/17 13:15 16 96 Room Air 12/21/17 12:35 Room Air 12/21/17 12:31 97.9 58 16 125/70 (88) 96 I/O 12/21/17 12/21/17 12/21/17 12/22/17 12/22/17 12/22/17 07:00 15:00 23:00 07:00 15:00 23:00 Intake Total 1000 ml Balance 1000 ml Intake IV Total 1000 ml Result Diagram: 12/21/17 1315 12/22/17 0520 Objective Remarks GENERAL: Well-developed, well-nourished, in no acute distress. alert and orientated HEENT: Head is normocephalic without any lesions or masses noted. Facial features are symmetric. Eyes: Extraocular muscles are intact. Conjunctivae were clear. Oropharyngeal: NECK: Supple without any masses. Trachea midline no deviation. No JVD, CARDIAC: Regular rhythm, regular rate. S1/S2 are heard. No murmurs gallops or rubs. LUNGS: Clear to auscultation bilaterally. No wheeze, rhonchi or rales. No use of accessory muscles on inspiration or expiration. ABDOMEN: Soft, nontender. Nondistended. Bowel sounds heard in all 4 quadrants. No organomegaly or masses. Negative rebound, negative guarding EXTREMITIES: No edema, pulses are equal bilaterally. No cyanosis or clubbing NEUROLOGY: Mood and affect appear appropriate. Cranial nerves II through XII grossly intact. Moving all extremities, speech is clear Urinary Catheter: No Vascular Central Line Catheter: No A/P Assessment and Plan Syncope, recurrent -Very convincing of orthostatic hypotension, unable to fully assess for orthostatic hypotension given that normal saline has been ordered already by the time orthostatic vital signs are being collected -Electrolytes and TSH were monitored which are normal at this time -Cardiac enzymes were performed and ruled out any acute coronary event -Discussed case with patient's document management technician, who indicated discontinuation of isosorbide. Outpatient follow-up for loop recorder -Telemetry did not indicate any acute arrhythmia Hyperkalemia, resolved -Etiology is unclear but will hold home lisinopril, -We will decrease to lisinopril 5 mg twice daily Chronic atrial fibrillation -EKG with atrial fibrillation with rate control -Atenolol continued for rate control -Eliquis continued for anticoagulation Hypertension -Hold home isosorbide nitrate per cardiology recommendations, continue atenolol and lisinopril DVT prevention -Eliquis Discharge Planning Discharge home in stable condition Activity: Ad yaw. Diet: Healthy heart diet Medication per medication reconciliation Follow-up with primary medical doctor in 1 week David Sandhu Dec 22, 2017 09:29
--- NOTE | 2017-12-22 21:27 | EKG ---
Date Performed: 12/21/2017 Time Performed: 12:57:21 PTAGE: 77 years EKG: ATRIAL FIBRILLATION ABNORMAL RHYTHM ECG PREVIOUS TRACING : 05/17/2017 20.40 DOCTOR: Mathew Toney Interpretating Date/Time 12/22/2017 21:26:41
== END 2017-12-22 10:47 | disposition home or self-care (01) ==
LOC: PHED 12:31 → PHEDA 17:07 → PH3B 17:13
PROVIDERS: ADMIT Hospitalist; ATTEND Hospitalist
DX: R55 Syncope and collapse (principal); E87.5 Hyperkalemia; I10 Essential (primary) hypertension; I48.2 Chronic atrial fibrillation; R11.0 Nausea; R42 Dizziness and giddiness; R61 Generalized hyperhidrosis; I25.10 Atherosclerotic heart disease of native coronary artery without angina pectoris; E11.9 Type 2 diabetes mellitus without complications; E78.00 Pure hypercholesterolemia, unspecified; K21.9 Gastro-esophageal reflux disease without esophagitis; H93.19 Tinnitus, unspecified ear; M17.0 Bilateral primary osteoarthritis of knee; M19.032 Primary osteoarthritis, left wrist; M19.031 Primary osteoarthritis, right wrist; F17.290 Nicotine dependence, other tobacco product, uncomplicated; Z95.5 Presence of coronary angioplasty implant and graft; Z79.01 Long term (current) use of anticoagulants; Z79.899 Other long term (current) drug therapy
CPT/HCPCS: 71045; 80048; 80053; 81001; 82550; 82552; 83735; 83880; 84100; 84443; 84484; 85025; 85610; 85730; 93005; 96360; 97162; 99285; G0378; G8987; G8988; J7030